=== PATIENT | male | born 1965 | race Caucasian/White ===

== ENCOUNTER 2022-09-30 17:06 | Emergency (ER) | payer OTHER, SELFPAY ==
--- NOTE | ~2022-09-30 | XR_ITS ---
EXAMINATION: XR hand LT min 3V DATE: 09/30/2022 17:22 INDICATION: Left hand stabbing injury. TECHNIQUE: 3 views of left hand were obtained. COMPARISON: None. FINDINGS: Bone alignment is normal. No fracture. 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 IMPRESSION: 1. No fracture or radiopaque foreign body. Reviewed, dictated and finalized at location E.
[2022-09-30 17:09] VITALS: BP 129/72; PULSE 78; RESP 20; TEMP 36.8; O2SAT 100
--- NOTE | 2022-09-30 17:35 | ED.WOUNDLAC ---
HPI - Wound/Laceration General Chief Complaint: Wound/Laceration Stated Complaint: left hand lac Time Seen by Provider: 09/30/22 17:15 Source: patient, family, RN notes reviewed and old records reviewed Mode of arrival: ambulatory Limitations: no limitations History of Present Illness HPI narrative: 57 year old male who presents to [facility] care with laceration to his left hand candelario aspect at base of his left index finger while trying to cut avocado.Patient reports that knife slipped and he punctured hand with insertion at base of left index finger with exit at area between 2nd and 3rd finger dorsally with no acute bleeding noted. Patient reports some numbness sensation to tip of his left index finger, circulation is intact with nail bed has brisk capillary refill, patient has full mobility of his left index finger and hand. Patient is right hand dominant. Tetanus is reported up to date. Onset (ago): hour(s) (with in past hour prior to arrival) Location: other (left hand) Place: home Patient tetanus UTD: Yes Treatments prior to arrival: bandage Related Data Home Medications Medication Instructions Recorded Confirmed finasteride 5 mg tablet 5 mg PO QHS 09/30/22 09/30/22 Allergies Allergy/AdvReac Type Severity Reaction Status Date / Time No Known Allergies Allergy Verified 09/30/22 17:32 Review of Systems Review of Systems: CONSTITUTIONAL: Denies fever, chills, or sweats. CARDIOVASCULAR: Denies chest pain, palpitations, or edema. RESPIRATORY: Denies cough or dyspnea. SKIN: Reports Laceration to left palm with insertion site at base of left index finger and puncture through to area between 2nd and 3rd finger dorsally MUSCULOSKELETAL: Denies musculoskeletal pain NEUROLOGIC: Denies numbness, or weakness. All systems reviewed & are unremarkable except as noted in HPI and below [facility] Past Medical History Medical History (Updated 10/03/22 @ 00:00 by Background Daemon) BPH (benign prostatic hyperplasia) Family History Family History (Updated 01/16/14 @ 07:13 by DOCTOR UNKNOWN) Father Family history of congestive heart failure Family history of heart disease in male family member before age 55 Social History Social History Smoking status: Never smoker Second hand tobacco smoke exposure: No Alcohol intake: never Comments At time of signature, agree with nursing past medical, surgical, social and family history. There is no relevant family history pertinent to the presenting complaint Exam Narrative: GENERAL: Well-appearing, well-nourished, and in no acute distress. HEAD: Normocephalic, atraumatic. NECK: Supple.no lymphadenopathy CHEST: Clear to auscultation. No respiratory distress.SAO2 100% on room air HEART: Regular rate and rhythm. No murmur heard. Normal peripheral pulses. EXTREMITIES: Normal range of motion. No edema. SKIN: Warm, dry, no rash. Reports puncture type of laceration to candelario aspect of left hand at base of left index finger 1 cm linear and exit between dorsal area between left 2nd and 3rd finger 0.4cm, circulation and mobility is intact reports some numbness to tip of left index finger. NEURO: No focal deficits. Alert and oriented x3. Course Course Level of Care: Express Care Visit Vital Signs Vital signs: Vital Signs Temperature 36.8 C 09/30/22 17:09 Pulse Rate 78 09/30/22 17:09 Respiratory Rate 20 09/30/22 17:09 Blood Pressure 129/72 09/30/22 17:09 Pulse Oximetry 100 09/30/22 17:09 Oxygen Delivery Room Air 09/30/22 17:09 Temperature 36.8 C 09/30/22 17:09 Pulse Rate 78 09/30/22 17:09 Respiratory Rate 20 09/30/22 17:09 Blood Pressure 129/72 09/30/22 17:09 Pulse Oximetry 100 09/30/22 17:09 Oxygen Delivery Room Air 09/30/22 17:09 Procedures Laceration left palm: Date: 09/30/22 Time: 17:32 Site: hand Side (If applicable): left Size (cm): 1 Description: linear Dep
== END 2022-09-30 18:05 | disposition home or self-care (01) ==
PROVIDERS: Emergency Provider Registered Nurse
DX: S61.412A Laceration without foreign body of left hand, initial encounter (principal); W26.0XXA Contact with knife, initial encounter; Y93.G1 Activity, food preparation and clean up; N40.0 Benign prostatic hyperplasia without lower urinary tract symptoms
CPT/HCPCS: 12001; 73130; 99203; G0463

== ENCOUNTER 2023-12-20 08:43 | Outpatient (CLI) | payer OTHER, SELFPAY ==
--- NOTE | ~2023-12-20 | CT_ITS ---
CT of the Abdomen and Pelvis: Indication: Prostate cancer Technique: 2.5 mm axial scans were obtained through the abdomen and pelvis following intravenous adm inistration of 100 cc of Omnipaque 350. Dose reduction technique was used on this scan by utilizing a utomated exposure control and iterative reconstruction technique. The dose-length product (DLP) was 2 30.59 mGy-cm. Findings: Scans through the lung bases are unremarkable. Several tiny hepatic hypodensities are too small to accurately characterize. The spleen, pancreas, ga llbladder, adrenals and kidneys are within normal limits. No evidence of aortic aneurysm. No lympha denopathy. No bowel obstruction or bowel wall thickening. There is no evidence to suggest acute appendicitis. Ex tensive stool suggests constipation. Images through the pelvis were performed. Urinary bladder unremarkable. No definite pelvic mass seen. No ascites. Impression: No definite evidence for metastatic disease. Several tiny hepatic hypodensities are too small to accu rately characterize. Constipation. Reviewed, dictated and finalized at [facility]. Impression: No definite evidence for metastatic disease. Several tiny hepatic hypodensities are too small to accurately characterize. Constipation.
--- NOTE | ~2023-12-20 | NM_ITS ---
EXAMINATION: NM bone scan whole body DATE: 12/20/2023 13:11 INDICATION: Prostate cancer. TECHNIQUE: 25 mCi Tc-99m HDP was administered intravenously. Delayed whole-body scintigrams were obt ained. COMPARISON: CT abdomen pelvis 12/20/2023 FINDINGS: There is no pattern of increased activity in the bones to suggest metastatic disease. IMPRESSION: 1. No evidence of metastatic disease. Reviewed, dictated and finalized at location A.
[2023-12-20 09:50] LABS: Estimated Glomerular Filt Rate > 60
== END 2023-12-20 08:44 | disposition home or self-care (01) ==
PROVIDERS: Visit Provider Urology
DX: C61 Malignant neoplasm of prostate (principal); K59.00 Constipation, unspecified
CPT/HCPCS: 74177; 78306; A9503; Q9967

== ENCOUNTER 2024-01-27 10:11 | Emergency (ER) | payer OTHER, SELFPAY ==
[2024-01-27 10:18] VITALS: BP 117/62; PULSE 91; RESP 20; TEMP 38.1; O2SAT 97
--- NOTE | 2024-01-27 10:19 | ED.GENADULT ---
HPI - General Adult General Chief complaint: Upper Respiratory Infection Stated complaint: sinus infection Time Seen by Provider: 01/27/24 10:19 Source: patient, RN notes reviewed and old records reviewed Mode of arrival: ambulatory Limitations: no limitations History of Present Illness HPI narrative: 58-year-old male to Express Care for complaint of low-grade fever for 3 days, mild dry cough, right ear discomfort. 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 Patient is utilize [id number] medications without relief. Patient declined COVID testing. Patient states that he has not had a sinus infection for over 2 years. Patient denies difficulty swallowing, shortness of breath, chest pain, sore throat, GI complaints. Patient resting comfortably in exam room in no acute distress. Respirations even and nonlabored. Related Data Home Medications Medication Instructions Recorded Confirmed finasteride 5 mg tablet 5 mg PO QHS 09/30/22 09/30/22 Allergies Allergy/AdvReac Type Severity Reaction Status Date / Time No Known Allergies Allergy Verified 09/30/22 17:32 Review of Systems Review of Systems: All systems reviewed & are unremarkable except as noted in HPI and below Constitutional: Constitutional: Reports as per HPI and Reports fever(s) Eyes: Eyes: Reports no additional eye complaints ENT: Reports as per HPI and Reports otalgia ( Right) Cardiovascular: Cardiovascular: Reports no additional cardiovascular complaints, Denies chest pain and Denies dyspnea Respiratory: Respiratory: Reports no additional respiratory complaints, Reports cough and Denies dyspnea Musculoskeletal: Musculoskeletal: Reports no additional musculoskeletal complaints Neurologic: Reports system reviewed and no additional complaints, except as documented Psychiatric: Psychiatric: Reports no additional psychiatric complaints [facility] Past Medical History Medical History BPH (benign prostatic hyperplasia) Family History Family History Father Family history of congestive heart failure Family history of heart disease in male family member before age 55 Social History Social History Smoking status: Never smoker Second hand tobacco smoke exposure: No Alcohol intake: never Comments At the time of my signature, I reviewed and agree with the nursing past medical, surgical, social, and family history. There is no relevant family history pertinent to the patient complaint. Exam Const: General: cooperative, healthy appearing, comfortable, no acute distress, alert and well nourished Nutritional Appearance: well nourished Orientation/consciousness: patient oriented x3 Limitations: no limitations HENMT: Head: normal to inspection Ears: external ears normal Face/Nose/Sinus: Normal external nose present, Normal nares present, normal facial exam, No erythema and No edema Face and sinus: normal facial exam, no erythema and no edema Mouth: Yes Normal oral and palatal mucosa present Eyes: General: appearance normal, both eyes and all related structures Neck: Neck: normal visual inspection, full ROM and no meningeal signs Lymphatic: no lymphadenopathy noted and no lymphedema noted Chest: Chest palpation & inspection: normal inspection of the chest Resp: Effort & Inspection: normal respiratory effort and able to speak in complete sentences Auscultation: clear to auscultation bilaterally Cardio: Jugular venous distension: no JVD Rate: regular rate Rhythm: regular rhythm Back/Spine/Pelvis: Cervical Spine: cervical ROM normal Skin: General skin exam: normal color, no rashes or lesions noted and turgor normal Neuro: General: patient oriented x3, gait normal, moves all extremities and no meningeal s
== END 2024-01-27 10:51 | disposition home or self-care (01) ==
PROVIDERS: Emergency Provider Nurse Practitioner Family
DX: J32.9 Chronic sinusitis, unspecified (principal); N40.0 Benign prostatic hyperplasia without lower urinary tract symptoms
CPT/HCPCS: 99213; G0463

== ENCOUNTER 2024-09-30 09:28 | Outpatient (CLI) | payer OTHER, SELFPAY ==
--- NOTE | ~2024-09-30 | XR_ITS ---
XR chest 2V Ordering provider: David Carrington MD History: 59 years Male with . C61 - Malignant neoplasm of prostate . Comparison: None. FINDINGS: MEDIASTINUM: The cardiac silhouette is not enlarged. LUNGS: No infiltrates, effusions or pneumothorax. OTHER: No free air under the diaphragm. Degenerative changes of the spine. IMPRESSION: No acute cardiopulmonary pathology. No definite metastatic lesions seen in the lungs. Reviewed, dictated and finalized at location A.
--- OUTSIDE RECORDS SUMMARY | 2024-09-30 09:37 | XMS_ITS | Referral Summary ---
Author Organization [facility] [facility] [place] Address [address] [place] [address] Care Team Providers Care Director Social Service Name Role Phone Archana Avery NP Primary Care Provider [phone] David Carrington MD Unavailable [phone] Allergies No known active allergies Medications finasteride (PROSCAR) 5 mg tablet take 1 tablet (5MG) by oral route every day 0 11/11/2010 Active blood glucose diagnostic (NON-FORMULARY) stripIndications :Uncontrolled type 2 diabetes mellitus with hyperglycemia, without long-term current use of insulin ([facility]) Check sugars 2-3 x week 50 each 11 10/27/2016 Active Active Problems Problem Noted Date Diagnosed Date Rising PSA level 10/18/2023 Assessment & Plan (10/18/2023 1:02 PM CDT): -chronic, new -Discussed/ordered labs -continue seeing Dr. Carrington urology -patient will be doing a prostate biopsy soon Counseling for travel 10/13/2022 Assessment & Plan (10/13/2022 8:45 AM CDT): -patient will be leaving for [place] for 2 weeks on 12/07/2022. -start on hydroxychloroquine 400 mg 1 tablet once weekly. Advised patient to start this prescription 1 week prior to leaving on his trip and to continue taking 4 weeks after he returns for a total of 7 weeks. Advised patient to take this medication on the same day each week. -prescription given for Z-Edgar in case of bacterial illness while traveling. -advised patient to wash hands often with soap and water, especially prior to eating. Benign prostatic hyperplasia with lower urinary tract symptoms 06/13/2022 Assessment & Plan (10/18/2023 7:53 AM CDT): -chronic, stable -Discussed/ordered labs -continue on finasteride 5 mg daily. Continue seeing Dr. Carrington urology. Assessment & Plan (03/15/2023 7:52 AM CDT): Chronic problem- stable Follows urology Continue finasteride 5 mg daily Continue to monitor Last PSA 3.5 on 02/11/2023 Assessment & Plan (10/13/2022 7:15 AM CDT): HPI: Condition is stable A&P: Discussed/ordered labs, encouraged healthy, low carbohydrate lifestyle and at least 150min/week of exercise, continue on finasteride 5 mg daily. Continue seeing Dr. Carrington urology. Assessment & Plan (06/13/2022 9:16 AM OFFICE SUPPORT ASSOCIATE): HPI: Condition is stable A&P: Discussed/ordered labs, encouraged healthy, low carbohydrate lifestyle and at least 150min/week of exercise, continue on finasteride 5 [address] continue seeing [address] Carrington urology. Hyperlipidemia associated with type 2 diabetes yordy auguste 10/26/2017 Assessment & Plan (10/18/2023 7:52 AM CDT): -chronic, stable -Discussed/ordered labs -Patient does not take medication for this Assessment & Plan (03/15/2023 7:50 AM CDT): Chronic problem-stable with diet and exercise Personally reviewed labs from patient external report: Total chol 172 Trigs 45 HDL 77 LDL 86 Patient does not take medication/statin therapy for this Continue to monitor Continue heart healthy diet- patient states he mostly follow a more vegetarian style diet Assessment & Plan (10/13/2022 7:14 AM CDT): HPI: Condition is stable A&P: Discussed/ordered labs, encouraged healthy, low carbohydrate lifestyle and at least 150min/week of exercise. Patient does not take medication for this Assessment & Plan (06/13/2022 10:21 AM OFFICE SUPPORT ASSOCIATE): HPI: Condition is unknown, no data to review at this time to make an evaluation A&P: Discussed/ordered labs, encouraged healthy, low carbohydrate lifestyle and at least 150min/week of exercise. Patient does not take medications for this. Assessment & Plan (01/07/2021 10:09 AM CDT): Lipids checked today No statin Assessment & Plan (10/26/2017 4:02 PM CDT): Due to the high risk of of heart attacks and strokes in patients with diabetes, it is stronglyce recommended to aim for LDL-cholesterol ( bad cholesterol ) of less than 100 ( or less than 70 if you have a history of stroke or heart disease ) and a non HDL cholesterol of less than 130 . Since statin medications have shown to decrease the risk of heart disease and strokes in patients with diabetes , its use is strongly recommended. Pt declining use of statins Type 2 diabetes mellitus wit hout complication, without long-term current use of insulin 10/05/2013 Overview (08/25/2016): DMII WO CMP UNCNTRLD Assessment & Plan (10/18/2023 1:01 PM CDT): Condition is elevated, but under goal of less than 7% Personally reviewed A1c 6.7 % goal A1c 6.9% or less, as close to <6.5% Lab Results Component Value Date HGBA1C 6.4 (H) 06/13/2022 HGBA1C 6.3 01/07/2021 HGBA1C 6.3 10/24/2019 Maintenance Diabetic (Monofilament) foot exam - completed today Annual dilated eye exams. Due now. Recommend annual eye exam. Annual Urine microalbumin/creatinine ratio - ordered today Lab Results Component Value Date ALBCREATRATU <23 06/13/2022 Immunizations: Recommend pneumococcal vaccine, zoster vaccinations BP management B/P today- 141/64 fair Patient is currently is not on an BEA/ARB Goal blood pressure is <140/90, long-term blood pressure goal is to be as close to 120/80 as possible. Dyslipidemia management Personally reviewed most recent LDL as shown below. Patient is not on a statin cholesterol lowering medication Goal of less than 70 Lab Results Component Value Date LDLCALC 101 06/13/2022 Diabetes Complications History of macrovascular disease (CVA, HI, PVD) is not Present. Complications secondary to Diabetes - none Taking baby aspirin daily: No Smoking status: non-smoker Medications no change. Patient does not take medication for this and manages it through diet and exercise. Patient completes blood work once a year in the fall due to insurance. Discussed labs/ordered labs that have been ordered if applicable. Discussed eating a healthy low carb diet, include fresh fruits and vegetables daily. Diabetic education and nutritional counseling available if you have not had this before or annually. Encouraged to try moving at least a total of 30 minutes/day. Just move more. Instructed to wash, dry, lotion and check feet daily. Instructed to notify office if blood sugars are less than 80 or greater than 250 for 3 days Assessment & Plan (03/15/2023 7:55 AM CDT): Chronic problem- stable Personally reviewed labs completed externally A1C 6.7%- slightly up from last- at goal with A1C goal 6.9%, preferred to be as close to 6.5% Continue heart healthy diet Encouraged to increase activity to at least 150 min/week Follow up with pcp in 7 months for annual exam Fasting labs ordered for future- including A1c, microalbumin/creat ratio urine Continue to monitor Assessment & Plan (10/13/2022 8:46 AM CDT): Condition is stable Personally reviewed A1c 6.4 % goal A1c 6.9% or less, as close to <6.5% Lab Results Component Value Date HGBA1C 6.4 (H) 06/13/2022 HGBA1C 6.3 01/07/2021 HGBA1C 6.3 10/24/2019 Maintenance Diabetic (Monofilament) foot exam - completed 06/13/2022 protective senses intact. Annual dilated eye exams. Due now. Recommend annual eye exam. Annual Urine microalbumin/creatinine ratio - completed 06/13/2022 Lab Results Component Value Date ALBCREATRATU <23 06/13/2022 Immunizations: Recommend pneumococcal vaccine, zoster vaccinations, COVID booster BP management B/P today- 120/69 good Patient is currently is not on an BEA/ARB Goal blood pressure is <140/90, long-term blood pressure goal is to be as close to 120/80 as possible. Dyslipidemia management Personally reviewed most recent LDL as shown below. Patient is not on a statin cholesterol lowering medication Goal of less than 70 Lab Results Component Value Date LDLCALC 101 06/13/2022 Diabetes Complications History of macrovascular disease (CVA, HI, PVD) is not Present. Complications secondary to Diabetes - none Taking baby aspirin daily: No Smoking status: non-smoker Medications no change. Patient does not take medication for this and manages it through diet and exercise. Patient completes blood work once a year in the fall due to insurance. Discussed labs/ordered labs that have been ordered if applicable. Discussed eating a healthy low carb diet, include fresh fruits and vegetables daily. Diabetic education and nutritional counseling available if you have not had this before or annually. Encouraged to try moving at least a total of 30 minutes/day. Just move more. Instructed to wash, dry, lotion and check feet daily. Instructed to notify office if blood sugars are less than 80 or greater than 250 for 3 days Assessment & Plan (06/13/2022 10:21 AM OFFICE SUPPORT ASSOCIATE): Condition is unknown, no data to review at this time to make an evaluation Lab Results Component Value Date HGBA1C 6.3 01/07/2021 HGBA1C 6.3 10/24/2019 HGBA1C 6.3 % 10/25/2018 Maintenance Diabetic (Monofilament) foot exam - completed today protective senses intact Recommended annual dilated eye exams. Annual Urine microalbumin/creatinine ratio - ordered today No results found for: ALBCREATRATU Immunizations: Recommend pneumococcal vaccine, Shingrix vaccine, COVID booster, influenza BP management B/P today- 119/68 good Patient is currently is not on an BEA/ARB Goal blood pressure is <140/90, long-term blood pressure goal is to be as close to 120/80 as possible. Dyslipidemia management Personally reviewed most recent LDL as shown below. Patient is not on a statin cholesterol lowering medication Goal of less than 70 No results found for: LDLCALC Diabetes Complications History of macrovascular disease (CVA, HI, PVD) is Present. Complications secondary to Diabetes - none Taking baby aspirin daily: No Smoking status: non-smoker Medications no change. Patient has been managing his diabetes with diet and exercise. A1c ordered today Discussed labs/ordered labs that have been ordered if applicable. Discussed eating a healthy low carb diet, include fresh fruits and vegetables daily. Diabetic education and nutritional counseling available if you have not had this before or annually. Encouraged to try moving at least a total of 30 minutes/day. Just move more. Instructed to wash, dry, lotion and check feet daily. Instructed to notify office if blood sugars are less than 80 or greater than 250 for 3 days Assessment & Plan (01/07/2021 10:09 AM CDT): Hba1c was Lab Results Component Value Date HGBA1C 6.3 01/07/2021 today, indicating adequate DM control Goals blood sugars of 120-160 and Hba1c under 7 % was explained. 1800 calorie, consistent carb diet recommended, no more than 3-45 grams of carbs per meal, avoiding concentrated sweet drinks and rapid absorption carbs. 25-45 min daily aerobic and resistance exercise recommended Continue Motostranoa Assessment & Plan (10/24/2019 4:24 PM CDT): Hba1c was Lab Results Component Value Date HGBA1C 6.3 10/24/2019 today, indicating adequate DM control 1800 calorie, consistent carb diet recommended, no more than 3-45 grams of carbs per meal, avoiding concentrated sweet drinks and rapid absorption carbs. 25-45 min daily aerobic and resistance exercise recommended Blood glucose monitoring with fingers sticks 1-2 X week Medications: continue TradBallLogicnta Assessment & Plan (10/25/2018 3:55 PM CDT): Hba1c was Lab Results Component Value Date HGBA1C 6.3 % 10/25/2018 today, indicating adequate DM control 1800 calorie, consistent carb diet recommended 25-45 min daily aerobic and resistance exercise recommended Oral medications: Continue TradBallLogicnta Assessment & Plan (10/26/2017 4:01 PM CDT): Hba1c was Lab Results Component Value Date HGBA1C 6.3 10/26/2017 today, indicating Adequate DM control 1800 calorie, consistent carb diet recommended 30 min daily aerobic and resistance exercise recommended Prevention and treatment of hyypoglcyemia discussed. Blood glucose monitoring with fingers sticks 1-2 x day . Resolved Problems Problem Noted Date Diagnosed Date Resolved Date Uncontrolled type 2 diabetes mellitus with hyperglycemia 10/27/2016 06/13/2022 Assessment & Plan (10/27/2016 4:26 PM CDT): hba1c was 6.3 today, indicating adequate DM control 1800 calorie, consistent carb diet recommended 30 min daily aerobic and resistance exercise recommended Foot care discused. Prevention and treatment of hyypoglcyemia discussed. 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 06/13/2022 Overview (08/26/2016): DISACCHARIDASE DEF/MALAB Immunizations Immunization Administration Dates Next Due Hep A / Hep B 11/29/2016,05/31/2016 Hep A, Adult 07/01/2016 Hep B Vaccine 07/20/2022,07/14/2016 Influenza, Unspecified 03/15/2023(Deferred: Lynda ent Refused) Tdap 05/31/2016 Typhoid Live 05/31/2016 Social History Tobacco Use Types Packs/Day Years Used Date Smoking Tobacco: Never Smokeless Tobacco: Never Tobacco Cessation:Counseling Given: Not Answered Alcohol Use Standard Drinks/Week Comments No 0 (1 standard drink = 0.6 oz pur e alcohol) AUDIT-C Answer Date Recorded Q1: How often do you have a drink containing alcohol? Never 10/18/2023 Q2: How many drinks containi ng alcohol do you have on a typical day when you are drinking? Patient does not drink Q3: How often do you have si x or more drinks on one occasion? Never 10/18/2023 PHQ-2 Answer Date Recorded PHQ-2 Total Score (If total score is 3 or more points, staff should administer the PHQ-9) 0 10/18/2023 Sex and Gender Information Value Date Recorded Sex Assigned at Not on file Legal Sex Male 1:28 PM OFFICE SUPPORT ASSOCIATE Gender Identity Not on file Sexual Orientation Not on file Last Filed Vital Signs Vital Sign Reading Time Taken Comments Blood Pressure 141/64 10/18/2023 8:20 AM CDT Pulse 56 10/18/2023 8:20 AM CDT Temperature 36.4 C (97.6 F) 10/18/2023 8:20 AM CDT Respiratory Rate 16 10/18/2023 8:20 AM CDT Oxygen Saturation 98% 10/18/2023 8:20 AM CDT Inhaled Oxygen Concentration - - Weight 68.9 kg (151 lb 12.8 oz) 10/18/2023 8:20 AM CDT Height 178.2 cm (5' 10.16 ) 10/18/2023 8:20 AM C DT Body Mass Index 21.68 10/18/2023 8:20 AM CDT Plan of Treatment Not on file Procedures Procedure Name Priority Date/Time Associated Diagnosis Comments ALBUMIN CREATININE RATIO, URINE Routine 10/18/2023 8:56 AM CDT Type 2 diabetes mellitus without complication, without long-term current use of insulin (HCC) HEMOGLOBIN A1C Routine 02/13/2023 LIPID PANEL Routine 02/13/2023 PSA SCREEN Routine 02/13/2023 HEPATITIS C ANTIBODY Routine 06/13/2022 9:47 AM OFFICE SUPPORT ASSOCIATE Encounter for hepatitis C screening test for low risk patient EGFR Routine 06/13/2022 9:47 AM OFFICE SUPPORT ASSOCIATE Type 2 diabetes mellitus without complication, without long-term current use of insulin (HCC) HM COLONOSCOPY Routine 04/08/2022 DIABETIC EYE EXAM Routine 07/02/2019 from Last 3 Months or Most Recently Relevant to Health Maintenance Results * Albumin Creatinine Ratio, Urine (10/18/2023 8:56 AM CDT) Albumin Ur <12.0 mg/L Comment: Interpretive Data No reference range established. Current interpretive data was last revised 2018. Creatinine Ur 28.6 mg/dL [facility] Comment: Interpretive Data No reference range established. Current interpretive data was last revised 2018. Albumin Creatinine Ratio, Ur See Comment 1 - 29 [facility] Comment:Unable to calculate Urine 10/18/2023 8:56 AM CDT 10/18/2023 8:29 PM CDT us Archana Avery NP LAB URINE ORDERABLES Final R esult [facility] [address] [place] [address] * PSA screen (02/13/2023) SCRIBED PSA, Serum 3.5 0.00 - 4.0 ng/ml EXTERNAL LAB Blood 02/13/2023 us Generic External Data Provider LAB BLOOD ORDERAB LES Final Result Performing Organization Address [facility] Co de Phone Number EXTERNAL LAB * (ABNORMAL) Hemoglobin A1c (02/13/2023) SCRIBED Hemoglobin A1c 6.7(A) 4.8 - 4.6 % EXTERNAL LAB Blood 02/13/2023 us Generic External Data Provider LAB BLOOD ORDERAB LES Final Result Performing Organization Address [facility]/ZIP Co de Phone Number EXTERNAL LAB * Lipid panel (02/13/2023) SCRIBED Cholesterol, Total 172 100 - 199 mg/dl EXTERNAL LAB SCRIBED HDL 77 - - >39 mg/dl EXTERNAL LAB SCRIBED LDL 86 0 - 99 mg/dl EXTERNAL LAB SCRIBED Triglycerides 45 0 - 149 mg/dl EXTERNAL LAB Blood 02/13/2023 us Generic External Data Provider LAB BLOOD ORDERAB LES Final Result EXTERNAL LAB * eGFR (06/13/2022 9:47 AM OFFICE SUPPORT ASSOCIATE) eGFR 84 mL/min/1. 73 m2 [facility] (ANEESH) Comment: Interpretive Data Reference Interval Normal >/= 90 mL/min/1.73m2 Mildly decreased* 60 - 89 mL/min/1.73m2 Mildly to moderately decreased 45 - 59 mL/min/1.73m2 Moderately to severely decreased 30 - 44 mL/min/1.73m2 Severely decreased 15 - 29 mL/min/1.73m2 Kidney Failure < 15 mL/min/1.73m2 *Relative to young adult level Estimated glomerular filtration rate is determined by the 2020 CKD-EPI equation recommended by the National Kidney Foundation (A Unifying Approach to GFR Estimation: Recommendations of the NKF-ASK Task Force on Reassessing the Inclusion of Race in Diagnosing Kidney Disease, JASN 2020). The CKD-EPI equation should not be used for patients with unstable renal function and has not been validated in children and those over 70. Current interpretive data was last reviewed 2021. Blood 06/13/2022 9:47 AM OFFICE SUPPORT ASSOCIATE 06/13/2022 1:38 PM OFFICE SUPPORT ASSOCIATE Archana Avery NP LAB BLOOD ORDERABLES Final R esult [facility] (ANE[facility]) 1 [facility] Department [place] [address] * Hepatitis C antibody (06/13/2022 9:47 AM OFFICE SUPPORT ASSOCIATE) Hep C Ab Nonreactive Nonreactive [facility] (ANEESH) Comment: Interpretive Data Nonreactive: Antibodies to HCV not detected. Does NOT exclude the possibility of recent exposure to HCV. Equivocal: Equivocal for HCV antibodies. Supplemental molecular testing will be automatically performed to determine infection status in accordance with current CDC screening recommendations. Reactive: Positive for HCV antibodies. This may represent current or past HCV infection. Supplemental molecular testing will be automatically performed to determine current infection status in accordance with current CDC screening recommendations. Interpretive data was last revised on 2019. Testing performed by: [facility], [address] [place] [address], [place]., [address] Blood 06/13/2022 9:47 AM OFFICE SUPPORT ASSOCIATE 06/13/2022 5:31 PM OFFICE SUPPORT ASSOCIATE Archana Avery NP LAB MICROBIOLOGY - GENERAL O RDERABLES Final Result [facility] ([place]) 1 [facility] Department [place] [address] * COLONOSCOPY (04/08/2022) 04/08/2022 Impressions Oksana Harrison, CLT - 04/08/2022 Screening colonoscopy due 06/2024 Historical Provider HEALTH MAINTENANCE Final Result * Diabetic Eye Exam (07/02/2019) Historical Provider HEALTH MAINTENANCE Edited Result - Final from Last 3 Months or Most Recently Relevant to Health Maintenance Insurance [facility] CMR [facility] CMR Care Teams Director Social Service Relationship Specialty Start Date End Date Archana Avery NP [address] [facility] [address] [place] [address] [place] [id number] PCP - General Family Medicine 06/13/22 David Carrington MD [address] [facility] [address] [place] [address] [place] [id number] Consulting Physician Urology 06/13/22
--- OUTSIDE RECORDS SUMMARY | 2024-09-30 09:37 | XMS_ITS | Clinical Summary ---
Author Organization [facility] Address [address] [place] [address] Care Team Providers Care Radiation Oncology Manager Name Role Phone Unavailable Primary Care Provider Unavailabl e Source Comments [facility],non-owned Affiliates and Associated Physician Practices is amultiple site organization consisting of ambulatory clinics and hospital sitesin [place], [place], [place] and [place]. This disclosure is being madepursuant to the Care Everywhere program and may not contain all information available regarding this patient. Last updated 18.[facility] [employer] Allergies No known active allergies Medications * Be aware that medications may not be up to date on this document. Alwaysverify current medications with the patient. finasteride (PROSCAR) 5 MG tablet Take 1 (one) tablet by mouth at bedtime 03/04/2021 Active Glucosamine Sulfate 1000 MG Take 1 tablet by mouth once daily Active sildenafil (REVATIO) 20 MG tablet Take 20 mg by mouth once daily Active Social History Tobacco Use Types Packs/Day Years Used Date Smoking Tobacco: Never Smokeless Tobacco: Never Tobacco Cessation:Counseling Given: Not Answered Sex and Gender Information Value Date Recorded Sex Assigned at Not on file Legal Sex Male 11:33 AM VOLUNTEER COORDINATOR Gender Identity Not on file Sexual Orientation Not on file Plan of Treatment Health Maintenance Due Date Last Done Comments COLOGUARD (AGES 45-75) - COL ON CA SCREENING 1963 COLON MONITORING 1963 COLONOSCOPY - COLON CA SCREENING 1963 CT COLONOGRAPHY - COLON CA SCREENING 1963 Colorectal Cancer Screening 1963 FIT - COLON CA SCREENING 1963 FLEX SIG - COLON CA SCREENING 1963 HIV SCREENING 1978 HEPATITIS C SCREENING 05/08/1981 DTAP/TDAP/TD VACCINES (1 - Tdap) 1982 PNEUMOCOCCAL VACCINE 50+ (1 of 1 - PCV) 2013 ZOSTER VACCINE (1 of 2) 2013 COVID-19 VACCINE (1 - 2023-2 5 season) 2024 DEPRESSION SCREENING 05/22/2024 INFLUENZA VACCINE (Season Ended) 2025 LIPID TESTING 01/07/2026 01/07/2021 Respiratory Syncytial Virus (RSV) Vaccine Pt: or over 60 yrs (1 - 1-dose 75+ series) 2038 HEPATITIS B VACCINE Aged Out No longe r eligible based on patient's age to complete this topic HIB VACCINE Aged Out No longer eligi ble based on patient's age to complete this topic HPV VACCINE Aged Out No longer eligi ble based on patient's age to complete this topic MENINGOCOCCAL (Group B) VACC INE SHARED DECISION-MAKING Aged Out No longer eligibl e based on patient's age to complete this topic MENINGOCOCCAL GROUPS A/C/Y/W VACCINE Aged Out No longer eligible b ased on patient's age to complete this topic Insurance [facility]
--- OUTSIDE RECORDS SUMMARY | 2024-09-30 09:37 | XMS_ITS | Clinical Summary ---
Author Organization [facility] Address [facility] [place] [address] Care Team Providers Care Beam Builder Helper Name Role Phone Gabriel Yoon MD Primary Care Provider [phone] Allergies No known active allergies Medications vitamin B-12 (CYANOCOBALAMIN ) 500 MCG tablet Take 1 tablet by mouth daily. Active finasteride 5 MG tablet Take 5 mg by mouth nightly at bedtime. 3 05/31/2018 Active Glucosamine HCl 1000 MG Tab Take 1 tablet by mouth daily. Active Methylsulfonylm ethane (MSM) 1500 MG Tab Take 1 tablet by mouth daily. Active [place]-3 Fatty Acids (FISH OIL) 645 MG Cap Take 1 capsule by mouth daily. Active Active Problems Problem Noted Date Diagnosed Date Hyperlipidemia associated wi th type 2 diabetes mellitus ([facility]) 10/26/2017 Overview (07/23/2018): Last Assessment & Plan: Due to the high risk of of [...] strongly recommended. 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 Overview (07/23/2018): Overview: DISACCHARIDASE DEF/MALAB Benign prostatic hyperplasia 12/05/2012 Family History Medical History Relation Comments Eye cancer Sister Relation Status Comments Father Mother Alive Sister Social History Tobacco Use Types Packs/Day Years Used Date Smoking Tobacco: Never Smokeless Tobacco: Never Tobacco Cessation:Counseling Given: Not Answered Alcohol Use Standard Drinks/Week Comments Never 0 (1 standard drink = 0.6 oz pur e alcohol) PHQ-2 Answer Date Recorded PHQ-2 Score - If the patient scores above 3, please move on to questions 3-9 0 04/08/2022 Sex and Gender Information Value Date Recorded Sex Assigned at Not on file Legal Sex Male 6:33 PM CDT Gender Identity Not on file Sexual Orientation Not on file Last Filed Vital Signs Vital Sign Reading Time Taken Comments Blood Pressure 117/66 04/08/2022 7:59 AM TALENT MANAGEMENT MANAGER Pulse 66 04/08/2022 7:59 AM TALENT MANAGEMENT MANAGER Temperature 36 C (96.8 F) 04/08/2022 7:59 AM TALENT MANAGEMENT MANAGER Respiratory Rate 18 07/23/2018 11:24 AM TALENT MANAGEMENT MANAGER Oxygen Saturation 97% 04/08/2022 7:59 AM TALENT MANAGEMENT MANAGER Inhaled Oxygen Concentration - - Weight 63.8 kg (140 lb 9.6 oz) 04/08/2022 7:59 A M TALENT MANAGEMENT MANAGER Height 177.8 cm (5' 10 ) 04/08/2022 7:59 AM TALENT MANAGEMENT MANAGER Body Mass Index 20.17 04/08/2022 7:59 AM TALENT MANAGEMENT MANAGER Plan of Treatment Health Maintenance Due Date Last Done Comments Colorectal Cancer Screening Colonoscopy (10 Years) 1963 Kidney Health Evaluation 1963 Hemoglobin A1C 1963 Annual Physical 1966 Hepatitis C 1981 DTaP, Tdap and Td Vaccines ( 1 - Tdap) 1982 Pneumococcal Vaccine: 50+ Ye ars (1 of 2 - PCV) 1982 Zoster Vaccines (1 of 2) 2013 Diabetes: Retinopathy Eye Exam 07/02/2021 07/02/2019 Lipid Panel 01/07/2022 01/07/2021 COVID-19 Vaccine (2 - 2023-2 5 season) 2024 08/01/2020 RSV Immunization or 60+ Years (1 - 1-dose 75+ series) 2038 Meningococcal B Vaccine Aged Out No l onger eligible based on patient's age to complete this topic Meningococcal Vaccine Aged Out No tonie raisa eligible based on patient's age to complete this topic RSV Immunizations Under 20 Months Aged Out No longer eligible based on patient's age to complete this topic Procedures Procedure Name Priority Date/Time Associated Diagnosis Comments DILATED EYE EXAM (SCAN) Routine 07/02/2019 from Last 3 Months or Most Recently Relevant to Health Maintenance Results * DIABETIC RETINOPATHY EXAM (07/02/2019) us Documents Scanned SCANNING Edited Result - Final [facility] from Last 3 Months or Most Recently Relevant to Health Maintenance Insurance [employer] Care Teams Beam Builder Helper Relationship Specialty Start Date End Date Gabriel Yoon MD PCP - General INTERNAL MEDICINE 07/23/18
--- OUTSIDE RECORDS SUMMARY | 2024-09-30 09:37 | XMS_ITS | Clinical Summary ---
Author Organization [facility] [facility] [place] Address [address] [place] [address] Care Team Providers Care Superintendent Track Name Role Phone Archana Avery NP Primary Care Provider + [phone] David Carrington MD Unavailable [phone] Allergies No known active allergies Medications finasteride (PROSCAR) 5 mg tablet take 1 tablet (5MG) by oral route every day 0 11/11/2010 Active blood glucose diagnostic (NON-FORMULARY) stripIndications :Uncontrolled type 2 diabetes mellitus with hyperglycemia, without long-term current use of insulin ([facility]) Check sugars 2-3 x week 50 each 11 10/27/2016 Active Active Problems Problem Noted Date Diagnosed Date Rising PSA level 10/18/2023 Assessment & Plan (10/18/2023 1:02 PM CDT): -chronic, new -Discussed/ordered labs -continue seeing Dr. Carrington urology -patient will be doing a prostate biopsy soon Counseling for travel 10/13/2022 Assessment & Plan (10/13/2022 8:45 AM CDT): -patient will be leaving for [place] for 2 weeks on 12/07/2022. -start on [...] urology. Assessment & Plan (06/13/2022 9:16 AM MAIL RIDER): HPI: Condition is stable A&P: Discussed/ordered labs, [...] this Assessment & Plan (06/13/2022 10:21 AM MAIL RIDER): HPI: Condition is unknown, no data to [...] Diabetes Complications History of macrovascular disease (CVA, NH, PVD) is not Present. Complications secondary to [...] Diabetes Complications History of macrovascular disease (CVA, NH, PVD) is not Present. Complications secondary to [...] days Assessment & Plan (06/13/2022 10:21 AM MAIL RIDER): Condition is unknown, no data to review [...] Diabetes Complications History of macrovascular disease (CVA, NH, PVD) is Present. Complications secondary to Diabetes [...] daily aerobic and resistance exercise recommended Continue FrenchWeba Assessment & Plan (10/24/2019 4:24 PM CDT): [...] fingers sticks 1-2 X week Medications: continue TradNoiseFreenta Assessment & Plan (10/25/2018 3:55 PM CDT): Hba1c was Lab Results Component Value Date HGBA1C 6.3 % 10/25/2018 today, indicating adequate DM control 1800 calorie, consistent carb diet recommended 25-45 min daily aerobic and resistance exercise recommended Oral medications: Continue TradNoiseFreenta Assessment & Plan (10/26/2017 4:01 PM CDT): [...] ent Refused) Tdap 05/31/2016 Typhoid Live 05/31/2016 Surgical History Surgery Date Site/Laterality Comments APPENDECTOMY Appendectomy Medical History Medical History Date Comments Diabetes mellitus (HCC) Family History Medical History Relation Name Comments Coronary artery disease Father Coronary artery disease Other 1 Fami ly history of Coronary artery disease; Diabetes type II Other 2 Family hist ory of Diabetes -Type II; Other Other 3 No family histo ry of Hyperlipidemia; Other Other 4 No family histo ry of Hypertension; Relation Name Status Comments Father Mother Alive Other 1 Other 2 Other 3 Other 4 Social History Tobacco Use Types Packs/Day Years [...] on file Legal Sex Male 1:28 PM MAIL RIDER Gender Identity Not on file Sexual Orientation Not on file Obstetrics History Last Filed Vital Signs Vital Sign Reading [...] 10/18/2023 8:20 AM CDT Plan of Treatment Health Maintenance Due Date Last Done Comments Pneumococcal vaccine <65 (1 of 2 - PCV) 1982 Zoster Vaccine (1 of 2) 2013 Dilated Eye Exam 07/02/2020 07/02/2019, 03/2019, 07/02/2018 eGFR 06/13/2023 06/13/2022, 05/23, 02/12/2022 Hemoglobin A1C 08/14/2023 02/13/2023, 05/23, 02/12/2022, Additional history exists Covid-19 Vaccine (2 - 2023-2 5 season) 2024 08/01/2020 Influenza Vaccine (#1) 2024 Lipid Panel 02/14/2024 02/13/2023, 05/23, 02/12/2022, Additional history exists Colon Cancer Screening-Colonoscopy 06/22/2024 04/08/2022, 07/11/2014, 06/22/2014 Albumin Creatinine Ratio, Urine 10/17/2024 , 06/13/2022 Depression Screening 10/17/2024 10/18/2023, 03/15/2023, 10/13/2022, Additional history exists Foot Exam 10/17/2024 10/18/2023, 09/20, 06/13/2022, Additional history exists Regular Well Visit/Exam 18-64 10/17/2024 10/18/2023 Prostate Cancer Screening-PSA 02/13/2025 02/13/2023, 02/12/2022 DTaP/Tdap/Td Vaccine (2 - Td or Tdap) 05/31/2026 05/31/2016 Colon Cancer Screening-CT Colonography Discontinued 04/08/2022, 07/11/2014 Colon Cancer Screening-DNA Stool Discontinued 04/08/20, 07/11/2014 Colon Cancer Screening-FIT Discontinued 04/08/2022, Colon Cancer Screening-Sigmoidoscopy Discontinued 04/08/2022, 07/11/2014 Hepatitis C Screening Completed 06/13/2022 Hepatitis B Screening Completed 07/20/2022 , 11/29/2016, 07/14/2016, Additional history exists Procedures Procedure Name Priority Date/Time Associated Diagnosis Comments ALBUMIN CREATININE RATIO, URINE Routine 10/18/2023 8:56 AM CDT Type 2 diabetes mellitus without complication, without long-term current use of insulin (HCC) HEMOGLOBIN A1C Routine 02/13/2023 LIPID PANEL Routine 02/13/2023 PSA SCREEN Routine 02/13/2023 HEPATITIS C ANTIBODY Routine 06/13/2022 9:47 AM MAIL RIDER Encounter for hepatitis C screening test for low risk patient EGFR Routine 06/13/2022 9:47 AM MAIL RIDER Type 2 diabetes mellitus without complication, without long-term current use of insulin (HCC) HM COLONOSCOPY Routine 04/08/2022 DIABETIC EYE EXAM Routine 07/02/2019 from Last 3 Months or Most Recently Relevant to Health Maintenance Results * Albumin Creatinine Ratio, Urine (10/18/2023 8:56 AM CDT) Pathologist [facility] Albumin Ur <12.0 mg/L Comment: Interpretive Data No reference range established. Current interpretive data was last revised 2018. Creatinine Ur 28.6 mg/dL AMY FLETCHER Comment: Interpretive Data No reference range established. Current interpretive data was last revised 2018. Albumin Creatinine Ratio, Ur See Comment 1 - 29 AMY FLETCHER Comment:Unable to calculate Urine 10/18/2023 8:56 AM CDT 10/18/2023 8:29 PM CDT Archana Avery NP LAB URINE ORDERABLES Final R esult Performing Organization Address [facility] Co de Phone Number AMY [address] Department [place] [address] * PSA screen (02/13/2023) [facility] SCRIBED PSA, Serum 3.5 0.00 - 4.0 ng/ml EXTERNAL LAB Blood 02/13/2023 Generic External Data Provider LAB BLOOD ORDERAB LES Final Result Performing Organization Address [facility] Co de Phone Number EXTERNAL LAB * (ABNORMAL) Hemoglobin A1c (02/13/2023) [facility] SCRIBED Hemoglobin A1c 6.7(A) 4.8 - 4.6 % EXTERNAL LAB Blood 02/13/2023 us Generic External Data Provider LAB BLOOD ORDERAB LES Final Result Performing Organization Address City/[facility]/ZIP Co de Phone Number EXTERNAL LAB * Lipid panel (02/13/2023) [facility] SCRIBED Cholesterol, Total 172 100 - 199 mg/dl EXTERNAL LAB SCRIBED HDL 77 - - >39 mg/dl EXTERNAL LAB SCRIBED LDL 86 0 - 99 mg/dl EXTERNAL LAB SCRIBED Triglycerides 45 0 - 149 mg/dl EXTERNAL LAB Blood 02/13/2023 Generic External Data Provider LAB BLOOD ORDERAB LES Final Result Performing Organization Address [facility]/ZIP Co de Phone Number EXTERNAL LAB * eGFR (06/13/2022 9:47 AM MAIL RIDER) eGFR 84 mL/min/1. 73 m2 [facility] Comment: Interpretive Data Reference Interval Normal >/= [...] last reviewed 2021. Blood 06/13/2022 9:47 AM MAIL RIDER 06/13/2022 1:38 PM MAIL RIDER [facility] BLOOD ORDERABLES Final R esult AMY [facility] ([facility]) [address] [facility] Department of [employer] [place] [address] * Hepatitis C antibody (06/13/2022 9:47 AM MAIL RIDER) Hep C Ab Nonreactive Nonreactive [facility] Comment: Interpretive Data Nonreactive: Antibodies to HCV [...] last revised on 2019. Testing performed by: [facility], [address] [place] [address]., [id number] Blood 06/13/2022 9:47 AM MAIL RIDER 06/13/2022 5:31 PM MAIL RIDER Archana Avery NP LAB MICROBIOLOGY - GENERAL O RDERABLES Final Result [facility] ([facility]) [address] [facility] Department [place] [address] * HM COLONOSCOPY (04/08/2022) 04/08/2022 Impressions Oksana Harrison, CLT - 04/08/2022 Screening colonoscopy due 06/2024 Historical Provider MD HEALTH MAINTENANCE Final Result * Diabetic Eye Exam (07/02/2019) Historical Provider HEALTH MAINTENANCE Edited Result - Final from Last 3 Months or Most Recently Relevant to Health Maintenance Insurance [facility] CMR [facility] CMR Care Teams Superintendent Track Relationship Specialty Start Date End Date Archana Avery NP [address] [place] [address] [address] [place] [address] PCP - General Family Medicine 06/13/22 David Carrington MD [address] [place] [address] [address] [place] [address] Consulting Physician Urology 06/13/22
--- NOTE | 2024-09-30 10:46 | ECG_ITS ---
Test Date: 2024-09-30 11:05:16 Measurements Intervals [place] Rate: 58 P: 59 VT: 161 QRS: 28 QRSD: 94 T: 55 QT: 405 QTc: 401 Interpretive Statements SINUS BRADYCARDIA No previous ECG available for comparison Electronically Signed On 10-01-2024 14:36:49 CDT by Zabrina Scott M.D.
[2024-09-30 12:33] LABS: Basophils Absolute Auto 0.1 K/mm3 (0.0-0.1); Basophils Percent Auto 0.9 % (0.2-1.2); Eosinophils Absolute Auto 0.1 K/mm3 (0-0.3); Eosinophils Percent Auto 1.1 % (0-4.4); Hematocrit 43.6 % (42.0-52.0); Immature Granulocyte Absolute 0.01 K/mm3 (0.00-0.031); Immature Granulocyte Percent A 0.2 % (0-0.5); Lymphocytes Percent Auto 26.3 % (18.3-44.2); Mean Corpuscular HGB Conc 32.1 g/dl (32-36); Mean Corpuscular Hemoglobin 31.6 pg (26-34); Mean Corpuscular Volume 98.4 fl (80-100); Monocytes Absolute Auto 0.5 K/mm3 (0.1-0.6); Monocytes Percent Auto 9.1 % (2.6-8.5); Neutrophils Absolute Auto 3.6 K/mm3 (1.3-6.7); Neutrophils Percent Auto 62.4 % (45.5-73.1); Platelet Count Result 169 k/mm3 (150-375); Red Blood Count 4.43 M/mm3 (4.6-6.20); Red Cell Distribution Width 14.3 % (11.5-14.5); White Blood Count 5.7 K/mm3 (4.5-10.0)
[2024-09-30 12:35] LABS: Add Urine Microscopic? NO; Appearance Urine Clear (Clear); Bilirubin Urine Negative (Negative); Blood Urine Negative (Negative); Color Urine Yellow (Yellow); Glucose Urine UA Negative (Negative); Ketones Urine Negative (Negative); Leukocyte Esterase Ur Negative LEU/UL (Negative); Nitrate Urine Negative (Negative); Protein Urine Negative (Negative); Specific Grav Ur 1.005 (1.001-1.035); Urobilinogen Urine 0.2 mg/dL (<2.0); pH Urine 6.5 (5.0-9.0)
[2024-09-30 12:43] LABS: Prothrombin Time 13.3 Seconds (11.1-14.7)
[2024-09-30 12:44] LABS: Alanine Aminotransferase 59 U/L (6-50); Albumin Level 4.9 g/dL (3.5-5.1); Alkaline Phosphatase 88 U/L (38-126); Anion Gap 9 mmol/L (4-12); Aspartate Amino Transferase 43 U/L (17-59); Bilirubin,Total 0.8 mg/dL (0.2-1.3); Blood Urea Nitrogen 22 mg/dL (9-20); Calcium 9.4 mg/dL (8.4-10.2); Carbon Dioxide 27 mmol/L (22-30); Chloride 104 mmol/L (98-107); Estimated Glomerular Filt Rate > 60; Glucose 120 mg/dL (65-110); Partial Thromboplastin Time 28.4 Seconds (22.3-36.8); Potassium 3.9 mmol/L (3.4-5.0); Sodium 140 mmol/L (137-145)
== END 2024-09-30 09:29 | disposition home or self-care (01) ==
LOC: ANHSURGERY 09:35
PROVIDERS: Visit Provider Urology
DX: C61 Malignant neoplasm of prostate (principal)
CPT/HCPCS: 36415; 71046; 80053; 81003; 85025; 85610; 85730; 86850; 86900; 86901; 93005

== ENCOUNTER 2024-10-10 00:58 | Day surgery (SDC) | payer OTHER, SELFPAY ==
--- NOTE | 2024-09-30 09:36 | PC.NURSE ---
Report to the Outpatient Waiting Room, entrance under the green pavilion located off [facility], at time __6 AM on date ___10/10/24____. Planned Procedure Time: _7:30 AM .? Time changes happen often and if your time is changed the preop area will call you the afternoon before. - You and your visitor will be asked to self-screen and do not enter if you have any COVID symptoms. Please call surgeon if you need to reschedule. - A mask is optional within the hospital at this time. Patients may have clear liquids (water, carbonated beverages, clear teas, apple juice) until 3 hours prior to surgery ( 4:30 AM) with a maximum of 20 ounces. - No food from midnight until time of surgery and no smoking, or chewing tobacco (or any form of nicotine). No chewing gum, candy or mints. - BOWEL PREP PER DR CASTRO Take only the following medications with a SIP of water on the morning of surgery: NONE DO NOT STOP ANY OF YOUR OTHER PRESCRIPTION MEDICATIONS PRIOR TO SURGERY EXCEPT THE FOLLOWING Hold all vitamins and supplements for 3 days per anesthesiologist.LAST DOSE 10/06/24 Medications to discontinue per physician NONE Date to take last dose Please no make-up, nail chinese, hairspray, perfume, deodorant, or body powder the day of surgery.? No jewelry (including any body piercings) or valuables the day of surgery, leave them at home.? Please take a shower or bath the night before, or the morning of, surgery with an antibacterial soap.? Wear comfortable, loose fitting clothing.? Children are encouraged to wear pajamas. - Jewelry must be removed prior to entering the operating room.? Rings and piercings that are not removed may be cut off. - The hospital will not accept responsibility for valuables.? - Please leave all valuables, including medications, at home the day of surgery. If you are going home after surgery, a licensed race car driver must drive you home.? - NO public transportation without another adult if you receive anesthesia. - We recommend that an adult stay with you for 24 hours following discharge. - We also recommend that you do not drive, make important decision, drink alcoholic beverages, or take any drugs that were not prescribed by your health care provider for at least 24 hours after your discharge time. Follow any additional instructions given to you from your surgeon. VERBAL AND WRITTEN instructions given to _PATIENT AND WIFE and asked if any additional questions and then verbalized understanding. Patient advised to call surgeon office or pre surgery nurse liaison [phone] if any additional questions.
[2024-09-30 09:41] VITALS: BMI 21.4
[2024-09-30 10:23] VITALS: BP 127/72; PULSE 59; RESP 18; TEMP 36.6; O2SAT 99
--- NOTE | 2024-10-01 18:48 | P.HP_ITS ---
H&P: HPI History of Present Illness Date/Time: 10/01/24 18:48 Chief Complaint: Prostate cancer Narrative: 10/2023: ?PSA: 5.5 ?- ?5/12 cores (all left cores x LA), GGG-3 ?- ?NCCN Unfavorable IR ?- ?Vol.: 17.7gm ?- ?-NVI/-ANUM ?Sam (prediction of pathology): ?a. ?Lymph node: 3% ?b. ?S.V.: 7% ?c. ?EPE: 35% ?d. ?Organ confined: 55% ?Street Table (risk of recurrence after RP) ?a. ?10-year: 22% ?b. ?7-year: 17% ?c. ?5-year: 12% ?d. ?3-year: 8% 11/2023: ?CT-abd/pelvis w/ contrast: normal ?Bone scan: normal 12/2023: ?Message from pt.: leaning towards RALP but will defer decision until 07/2024: ?Opts for RALP/bilat. PLND Review of Systems Review of Systems: All systems reviewed & are unremarkable except as noted in HPI and below PMFSH Past Medical History Medical History BPH (benign prostatic hyperplasia) Family History Family History Father Family history of congestive heart failure Family history of heart disease in male family member before age 55 Social History Social History Smoking status: Never smoker Second hand tobacco smoke exposure: No Alcohol intake: never Living arrangements: with family Spiritual care concerns: No Meds Home Medications and Allergies Home Medications ?Medication ?Instructions ?Recorded ?Confirmed ?Type finasteride 5 mg tablet 5 mg PO QHS 09/30/22 09/30/24 History amoxicillin 875 mg tablet 875 mg PO Q12H #20 tabs 01/27/24 09/30/24 Rx berberine chloride 500 mg capsule 500 mg PO DAILY 09/30/24 09/30/24 History cholecalciferol (vitamin D3) 25 25 mcg PO DAILY 09/30/24 09/30/24 History mcg (1,000 unit) capsule vitamin E 268 mg (400 unit) capsule 268 mg PO DAILY 09/30/24 09/30/24 History Allergies Allergy/AdvReac Type Severity Reaction Status Date / Time No Known Allergies Allergy Verified 09/30/24 09:42 Exam Const: General: no acute distress Resp: Effort & Inspection: normal respiratory effort GI: Inspection: non-distended GI Palp: No abdominal tenderness and No Guarding due to palpation present (GI) Auscultation: normal bowel sounds Assessment and Plan Assessment and plan (1) Prostate cancer: Code(s): C61 - Malignant neoplasm of prostate Status: Acute Assessment and Plan: Robotic-assisted laparoscopic radical prostatectomy with possible bilateral lymphadenectomy
[2024-10-10] VITALS (14 sets, daily range): BP systolic 100–131; BP diastolic 41–68; PULSE 59–98; RESP 9–19; TEMP 36.1–36.6; O2SAT 82–100
--- OUTSIDE RECORDS SUMMARY | 2024-10-10 01:01 | XMS_ITS | Clinical Summary ---
Author Organization [facility] Address [address] [place] [address] Care Team Providers Care Project Intern Name Role Phone Unavailable Primary Care Provider Unavailabl e Source Comments [facility],non-owned Affiliates and Associated Physician Practices is amultiple site organization consisting of ambulatory clinics and hospital sitesin [place] and [place]. This disclosure is being madepursuant to the Care Everywhere program and may not contain all information available regarding this patient. Last updated 18.[facility] Allergies No known active allergies Medications * [...] on file Legal Sex Male 11:33 AM BACON SKIN LIFTER Gender Identity Not on file Sexual Orientation [...] patient's age to complete this topic Insurance [facility] AENA
--- OUTSIDE RECORDS SUMMARY | 2024-10-10 01:01 | XMS_ITS | Clinical Summary ---
Author Organization [address] Professional [place] Address [address] [place] [address] Care Team Providers Care Hydrographic Surveyor Name Role Phone Archana Avery NP Primary Care Provider + [phone] David Carrington MD Unavailable [phone] Allergies No known active allergies Medications finasteride (PROSCAR) 5 mg tablet take 1 tablet (5MG) by oral route every day 0 11/11/2010 Active blood glucose diagnostic (NON-FORMULARY) stripIndications :Uncontrolled type 2 diabetes mellitus with hyperglycemia, without long-term current use of insulin ([facility]) Check sugars 2-3 x week 50 each 11 10/27/2016 Active Active Problems Problem Noted Date Diagnosed Date Rising PSA level 10/18/2023 Assessment & Plan (10/18/2023 1:02 PM CDT): -chronic, new -Discussed/ordered labs -continue seeing Dr. Carrington urology -patient will be doing a prostate biopsy soon Counseling for travel 10/13/2022 Assessment & Plan (10/13/2022 8:45 AM CDT): -patient will be leaving for [place] for 2 weeks on 12/07/2022. -start on [...] urology. Assessment & Plan (06/13/2022 9:16 AM REIMBURSEMENT SPEC): HPI: Condition is stable A&P: Discussed/ordered labs, [...] this Assessment & Plan (06/13/2022 10:21 AM REIMBURSEMENT SPEC): HPI: Condition is unknown, no data to [...] Diabetes Complications History of macrovascular disease (CVA, AL, PVD) is not Present. Complications secondary to [...] Diabetes Complications History of macrovascular disease (CVA, AL, PVD) is not Present. Complications secondary to [...] days Assessment & Plan (06/13/2022 10:21 AM REIMBURSEMENT SPEC): Condition is unknown, no data to review [...] Diabetes Complications History of macrovascular disease (CVA, AL, PVD) is Present. Complications secondary to Diabetes [...] daily aerobic and resistance exercise recommended Continue Scopeleca Assessment & Plan (10/24/2019 4:24 PM CDT): [...] fingers sticks 1-2 X week Medications: continue TradViva la Vitanta Assessment & Plan (10/25/2018 3:55 PM CDT): Hba1c was Lab Results Component Value Date HGBA1C 6.3 % 10/25/2018 today, indicating adequate DM control 1800 calorie, consistent carb diet recommended 25-45 min daily aerobic and resistance exercise recommended Oral medications: Continue TradViva la Vitanta Assessment & Plan (10/26/2017 4:01 PM CDT): [...] on file Legal Sex Male 1:28 PM REIMBURSEMENT SPEC Gender Identity Not on file Sexual Orientation [...] (2 - 2023-2 5 season) 2024 08/01/2020 Lipid Panel 02/14/2024 02/13/2023, 05/23, 02/12/2022, Additional history exists Colon Cancer Screening-Colonoscopy 06/22/2024 04/08/2022, 07/11/2014, 06/22/2014 Albumin Creatinine Ratio, Urine 10/17/2024 , 06/13/2022 Depression Screening 10/17/2024 10/18/2023, 03/15/2023, 10/13/2022, Additional history exists Foot Exam 10/17/2024 10/18/2023, 09/20, 06/13/2022, Additional history exists Regular Well Visit/Exam 18-64 10/17/2024 10/18/2023 Influenza Vaccine (Season Ended) 2025 Prostate Cancer Screening-PSA 02/13/2025 02/13/2023, 02/12/2022 DTaP/Tdap/Td [...] HEPATITIS C ANTIBODY Routine 06/13/2022 9:47 AM REIMBURSEMENT SPEC Encounter for hepatitis C screening test for low risk patient EGFR Routine 06/13/2022 9:47 AM REIMBURSEMENT SPEC Type 2 diabetes mellitus without complication, without long-term current use of insulin (HCC) HM COLONOSCOPY Routine 04/08/2022 DIABETIC EYE EXAM Routine 07/02/2019 from Last 3 Months or Most Recently Relevant to Health Maintenance Results * Albumin Creatinine Ratio, Urine (10/18/2023 8:56 AM CDT) Pathologist [facility] Albumin Ur <12.0 mg/L Comment: Interpretive Data [...] ORDERABLES Final R esult Performing Organization Address [facility] Co de Phone Number AMY [id number] Department [place] [address] * PSA screen (02/13/2023) [facility] [address] SCRIBED PSA, Serum 3.5 0.00 - 4.0 ng/ml EXTERNAL LAB Blood 02/13/2023 Generic External Data Provider LAB BLOOD ORDERAB LES Final Result Performing Organization Address [facility] Co de Phone Number EXTERNAL LAB * (ABNORMAL) Hemoglobin A1c (02/13/2023) [facility] [address] SCRIBED Hemoglobin A1c 6.7(A) 4.8 - 4.6 % EXTERNAL LAB Blood 02/13/2023 us Generic External Data Provider LAB BLOOD ORDERAB LES Final Result Performing Organization Address City/[facility]/ZIP Co de Phone Number EXTERNAL LAB * Lipid panel (02/13/2023) [facility] [address] SCRIBED Cholesterol, Total 172 100 - 199 mg/dl EXTERNAL LAB SCRIBED HDL 77 - - >39 mg/dl EXTERNAL LAB SCRIBED LDL 86 0 - 99 mg/dl EXTERNAL LAB SCRIBED Triglycerides 45 0 - 149 mg/dl EXTERNAL LAB Blood 02/13/2023 Generic External Data Provider LAB BLOOD ORDERAB LES Final Result Performing Organization Address [facility]/ZIP Co de Phone Number EXTERNAL LAB * eGFR (06/13/2022 9:47 AM REIMBURSEMENT SPEC) eGFR 84 mL/min/1. [address] [facility] Comment: Interpretive Data Reference Interval Normal >/= [...] last reviewed 2021. Blood 06/13/2022 9:47 AM REIMBURSEMENT SPEC 06/13/2022 1:38 PM REIMBURSEMENT SPEC [facility] LAB BLOOD ORDERABLES Final R esult [facility] 1 [facility] [place] [employer] [place] [address] * Hepatitis C antibody (06/13/2022 9:47 AM REIMBURSEMENT SPEC) Hep C Ab Nonreactive Nonreactive [facility] Comment: Interpretive Data Nonreactive: Antibodies to HCV [...] last revised on 2019. Testing performed by: [facility], [address] [place] [address]., [id number] Blood 06/13/2022 9:47 AM REIMBURSEMENT SPEC 06/13/2022 5:31 PM REIMBURSEMENT SPEC Archana Avery NP LAB MICROBIOLOGY - GENERAL O RDERABLES Final Result AMY [facility] ([place]) 1 [facility] Department [place] [address] * HM COLONOSCOPY (04/08/2022) 04/08/2022 Impressions Oksana Harrison, CLT - 04/08/2022 Screening colonoscopy due 06/2024 Historical Provider MD HEALTH MAINTENANCE Final Result * Diabetic Eye Exam (07/02/2019) Historical Provider HEALTH MAINTENANCE Edited Result - Final from Last 3 Months or Most Recently Relevant to Health Maintenance Insurance [facility] CMR [facility] CMR Care Teams Hydrographic Surveyor Relationship Specialty Start Date End Date Archana Avery NP [address] [place] [address] [address] [place] [address] PCP - General Family Medicine 06/13/22 David Carrington MD [address] [place] [address] [address] [place] [address] Consulting Physician Urology 06/13/22
--- OUTSIDE RECORDS SUMMARY | 2024-10-10 01:01 | XMS_ITS | Referral Summary ---
Author Organization [address] Professional [place] Address [address] [place] [address] Care Team Providers Care Cath Lab Tech Name Role Phone Archana Avery NP Primary Care Provider + [phone] David Carrington MD Unavailable [phone] Allergies No known active allergies Medications finasteride (PROSCAR) 5 mg tablet take 1 tablet (5MG) by oral route every day 0 11/11/2010 Active blood glucose diagnostic (NON-FORMULARY) stripIndications :Uncontrolled type 2 diabetes mellitus with hyperglycemia, without long-term current use of insulin ([facility]) Check sugars 2-3 x week 50 each 11 10/27/2016 Active Active Problems Problem Noted Date Diagnosed Date Rising PSA level 10/18/2023 Assessment & Plan (10/18/2023 1:02 PM CDT): -chronic, new -Discussed/ordered labs -continue seeing Dr. Carrington urology -patient will be doing a prostate biopsy soon Counseling for travel 10/13/2022 Assessment & Plan (10/13/2022 8:45 AM CDT): -patient will be leaving for [place] for 2 weeks on 12/07/2022. -start on [...] urology. Assessment & Plan (06/13/2022 9:16 AM SENIOR MEDICAL TECHNOLOGIST): HPI: Condition is stable A&P: Discussed/ordered labs, [...] this Assessment & Plan (06/13/2022 10:21 AM SENIOR MEDICAL TECHNOLOGIST): HPI: Condition is unknown, no data to [...] Diabetes Complications History of macrovascular disease (CVA, MD, PVD) is not Present. Complications secondary to [...] Diabetes Complications History of macrovascular disease (CVA, MD, PVD) is not Present. Complications secondary to [...] days Assessment & Plan (06/13/2022 10:21 AM SENIOR MEDICAL TECHNOLOGIST): Condition is unknown, no data to review [...] Diabetes Complications History of macrovascular disease (CVA, MD, PVD) is Present. Complications secondary to Diabetes [...] daily aerobic and resistance exercise recommended Continue [employer] Assessment & Plan (10/24/2019 4:24 PM CDT): [...] fingers sticks 1-2 X week Medications: continue TradScreenHitsnta Assessment & Plan (10/25/2018 3:55 PM CDT): Hba1c was Lab Results Component Value Date HGBA1C 6.3 % 10/25/2018 today, indicating adequate DM control 1800 calorie, consistent carb diet recommended 25-45 min daily aerobic and resistance exercise recommended Oral medications: Continue TradScreenHitsnta Assessment & Plan (10/26/2017 4:01 PM CDT): [...] on file Legal Sex Male 1:28 PM SENIOR MEDICAL TECHNOLOGIST Gender Identity Not on file Sexual Orientation [...] HEPATITIS C ANTIBODY Routine 06/13/2022 9:47 AM SENIOR MEDICAL TECHNOLOGIST Encounter for hepatitis C screening test for low risk patient EGFR Routine 06/13/2022 9:47 AM SENIOR MEDICAL TECHNOLOGIST Type 2 diabetes mellitus without complication, without [...] URINE ORDERABLES Final R esult [facility] [address] Department [place] [address] * PSA screen (02/13/2023) SCRIBED PSA, Serum 3.5 0.00 - 4.0 ng/ml EXTERNAL LAB Blood 02/13/2023 us Generic External Data Provider LAB BLOOD ORDERAB LES Final Result Performing Organization Address [facility] Co de Phone Number EXTERNAL LAB * (ABNORMAL) Hemoglobin A1c (02/13/2023) SCRIBED Hemoglobin A1c 6.7(A) 4.8 - 4.6 % EXTERNAL LAB Blood 02/13/2023 us Generic External Data Provider LAB BLOOD ORDERAB LES Final Result Performing Organization Address [facility]/ZIP Co de Phone Number EXTERNAL LAB [...] EXTERNAL LAB * eGFR (06/13/2022 9:47 AM SENIOR MEDICAL TECHNOLOGIST) eGFR 84 mL/min/1. 73 m2 AMY [facility] [...] last reviewed 2021. Blood 06/13/2022 9:47 AM SENIOR MEDICAL TECHNOLOGIST 06/13/2022 1:38 PM SENIOR MEDICAL TECHNOLOGIST Archana Avery NP LAB BLOOD ORDERABLES Final R esult [facility] ([place]) 1 [facility] Department [place] [address] * Hepatitis C antibody (06/13/2022 9:47 AM SENIOR MEDICAL TECHNOLOGIST) Hep C Ab Nonreactive Nonreactive AM[facility] LOVE [...] last revised on 2019. Testing performed by: [facility], [address] [place] [address], [place]., [address] Blood 06/13/2022 9:47 AM SENIOR MEDICAL TECHNOLOGIST 06/13/2022 5:31 PM SENIOR MEDICAL TECHNOLOGIST Archana Avery NP LAB MICROBIOLOGY - GENERAL O RDERABLES Final Result [facility] ([place]) 1 [facility] Department [place] [address] * COLONOSCOPY (04/08/2022) 04/08/2022 Impressions Oksana Harrison, CLT - 04/08/2022 Screening colonoscopy due 06/2024 Historical Provider HEALTH MAINTENANCE Final Result * Diabetic Eye Exam (07/02/2019) Historical Provider HEALTH MAINTENANCE Edited Result - Final from Last 3 Months or Most Recently Relevant to Health Maintenance Insurance [facility] CMR [facility] CMR Care Teams Cath Lab Tech Relationship Specialty Start Date End Date Archana Avery NP 2 [facility] [address] [place] [id number] PCP - General Family Medicine 06/13/22 David Carrington MD 2 [facility] [address] [place] [id number] Consulting Physician Urology 06/13/22
--- NOTE | 2024-10-10 05:54 | WPDHPUPDATE1 ---
History and Physical Update Update Date/Time: 10/10/24 05:54 History and Physical has been reviewed, including an updated exam of the patient. There are NO changes in the patient's condition. Risks, benefits, and alternatives have been discussed and questions answered. Patient agrees to proceed with procedure.
[2024-10-10] MEDS: LACTATED RINGERS 1,000 ML 30 ML IV CONT ×2 (06:30→10:45)
--- NOTE | 2024-10-10 06:44 | P.PNAN_ITS ---
Anes - Initial Pre Proc Eval Procedure: Operation Date: 10/10/24 07:30 Proposed Procedures p Robotic Assisted Laparoscopic Prostatectomy with Bilateral Pelvic Lymph Node Dissection - David Carrington MD Date/Time: 10/10/24 06:44 Surgeon: David Carrington MD Pre Op Diagnosis: prostate CA Patient Data Age: 59 Gender: M Height: 1.78 m Weight: 67.7 kg Last Vital Signs Temp 36.6 C 09/30/24 10:23 Pulse 59 L 09/30/24 10:23 Resp 18 09/30/24 10:23 BP 127/72 09/30/24 10:23 Pulse Ox 99 09/30/24 10:23 O2 Del Method Room Air 09/30/24 10:23 Allergies Allergy/AdvReac Type Severity Reaction Status Date / Time No Known Allergies Allergy Verified 10/10/24 06:10 Home Medications ?Medication ?Instructions ?Recorded ?Confirmed ?Type finasteride 5 mg tablet 5 mg PO QHS 09/30/22 10/10/24 History amoxicillin 875 mg tablet 875 mg PO Q12H #20 tabs 01/27/24 09/30/24 Rx berberine chloride 500 mg capsule 500 mg PO DAILY 09/30/24 10/10/24 History cholecalciferol (vitamin D3) 25 25 mcg PO DAILY 09/30/24 10/10/24 History mcg (1,000 unit) capsule vitamin E 268 mg (400 unit) capsule 268 mg PO DAILY 09/30/24 09/30/24 History Patient hx anesthesia problems: none Family hx anesthesia problems: none Results Review: All pre-operative results and documents have been reviewed as part of the pre- operative evaluation. [facility] Past Medical History Medical History BPH (benign prostatic hyperplasia) Family History Family History Father Family history of congestive heart failure Family history of heart disease in male family member before age 55 Social History Social History Smoking status: Never smoker Second hand tobacco smoke exposure: No Alcohol intake: never Living arrangements: with family Spiritual care concerns: No Anes - Eval Final PreProcedure Day of Procedure 10/10/24 06:45 Patient weight: normal Heart: regular rate and rhythm Lungs: clear to auscultation Airway: Mallampati scale class II Neurological: alert and oriented Last oral intake: >/= 8 hours ASA classification: III Emergent: no Anesthetic plan: proceed Anesthesia type and monitoring: general ETT and standard monitoring Results Review: All pre-operative results and documents have been reviewed as part of the pre- operative evaluation. Informed Consent: The patient's anesthetic plan and its attendant risks and benefits were discussed with the patient/family/POA. Questions were solicited and answers provided to the satisfaction of the patient/family/POA.
[2024-10-10] MEDS: ceFAZolin 2 GM/D5W 50 ML 2 GM/50 ML BAG IVPB (07:25)
--- NOTE | 2024-10-10 10:50 | P.OP_ITS ---
Procedure Note - Detailed Date of Procedure 10/10/24 Pre-op Diagnosis Prostate CA Post-op Diagnosis Same Procedure Performed Robotic assisted radical prostatectomy with bilateral pelvic lymphadenectomy Surgeon David Carrington MD Anesthesia General Description of Procedure The patient was brought to the operative suite, where he was prepped and draped in routine sterile fashion while in a dorsal lithotomy, deep Trendelenburg position. A supraumbilical 10 mm trocar was placed after insufflation of the abdomen with a Veress needle. Three robotic ports were then placed under direct vision. Two of these were placed in the right lower quadrant - 10 cm and 20 cm lateral to, and in line with, the umbilicus. A third robotic trocar was placed 10 cm to the left of the umbilicus, and 20 cm to the left of the umbilicus, a 12 mm standard laparoscopic trocar was placed to be used as an assistant professor of dietetics port. Lastly, a 5 mm trocar was placed in the left upper quadrant midway between the umbilicus and the left robotic trocar. Attention was then turned to the prostatectomy. I opted for a posterior approach in this patient. An incision was made in the parietal peritoneum along the posterior bladder/posterior prostate about 2 cm above the reflection of the peritoneum over the anterior rectum. The seminal vesicles and vas deferens were immediately identified. Dissection is undertaken in a fashion so as to avoid electrocautery as much as possible, particularly near the tips of the seminal vesicles. Dissection was also carried out in the midline so as to avoid any encounters with the ureters. The vas deferens and the seminal vesicles were dissected in their entirety to the base of the prostate. The plane anterior to Denoviller's fascia, anterior to the rectum and posterior to the prostate was then developed. I then dropped the bladder by incising the anterior parietal peritoneum just lateral to the median umbilical ligaments bilaterally. The bladder was dropped from the anterior abdominal and pelvic wall. The endopelvic fascia was identified and incised bilaterally, allowing for dissection of the posterior- lateral aspect of the prostate. The puboprostatic ligaments were transected near their origin from the posterior pubic ramus. This posterior lateral dissection of the prostate is also undertaken in a fashion so as to avoid electrocautery as much as possible. The dorsal vein of the penis is then secured with an 0 -Vicryl ligature. Attention is then turned to the bladder neck. The anterior bladder neck is incised at the vesico-prostatic junction. The previously placed urethral catheter was drawn through the urethrotomy. A very small bladder neck was maintained throughout the remainder of this dissection. The posterior bladder neck was incised in a fashion so as to avoid any injury to the ureteral orifices. Again, the small aperture of the bladder neck was maintained. The previously dissected vas deferens and the seminal vesicles were brought through the posterior bladder neck incision. The lateral prostatic pedicles were then carefully dissected from the lateral aspect of the prostate bilaterally. The prostatic pedicles were secured with Weck clips and transected. The neurovascular bundles were carefully dissected from the posterior-lateral aspect of the prostate. The dorsal vein of the penis was incised with electrocautery. Using cold scissors, the urethra was incised. After withdrawing the previously placed urethral catheter, the posterior urethra was sharply incised, as was the rectalurethralis muscle. Attention was then turned to an extended bilateral pelvic lymphadenectomy. The limits of this dissection were similar bilaterally. Specifically, the limits were the bifurcation of the common iliac vein proximally, the Sean's ligament distally, the pevic floor posteriorly. the pelvic sidewall laterally and the anterior aspect to the external iliac artery laterally. This dissection was undertaken with care to avoid any injury to the obturator nerve. The prostate, seminal vesicles and pelvic nodes were then placed in a specimen bag. The pelvis was copiously irrigated with saline. Urethrovesical anastomosis was then undertaken using similar two 3-0 V-lock sutures across a 20-[place] urethral catheter. The catheter was irrigated, and there was found to be no evidence of an irrigant extravasation. I opted not to place a pelvic drain. The robot is undocked, and the trocars were removed. The specimen was removed through the supraumbilical incision. The anterior rectus fascia at that suprapubic site was closed with a looped 0-PDS. Subcutaneous tissue was irrigated. Skin incisions were closed with 4-0 Vicryl subcuticular. Blood loss throughout this was 125cc. The patient tolerated the procedure well, was taken to recovery room in good condition. Drains No Pathology None sent Complications No immediate complications Condition Stable Disposition PACU
[2024-10-10] MEDS: fentaNYL CITRATE INJ (*CRX) 100 MCG/2 ML VIAL 25 MCG IV PUSH ×4 (11:24→11:51)
--- NOTE | 2024-10-10 12:28 | ADMGEN ---
This patient, Chuckie Richardson, was admitted to [facility] Surg Room 327-01. Patient/family oriented to hospital policies and general routines including ID bracelet, bed and alarms, visiting hours, pain management, procedures, bathroom and other care routines, personal items, smoking policy, room service/diet, and visiting hours. Information on how to activate the Rapid Response Team has been discussed. Patient/Family are encouraged to report perceived risks to care and to ask questions if they do not understand what they are told or what they should do.
[2024-10-10] MEDS: LACTATED RINGERS 1,000 ML 125 ML IV CONT (14:13)
[2024-10-10] MEDS: DOCUSATE SODIUM 100 MG CAPSULE PO (19:52)
[2024-10-10] MEDS: MORPHINE SULFATE (*CRX) 2 MG/ML INJ 1 MG IV PUSH (20:34)
[2024-10-10] MEDS: KETOROLAC 15 MG/ML VIAL (*BKC) IV PUSH (21:48)
[2024-10-10] MEDS: HYOSCYAMINE SULFATE 0.125 MG TABLET SUBLINGUAL (21:48)
[2024-10-11] MEDS: LACTATED RINGERS 1,000 ML 125 ML IV CONT (00:20)
[2024-10-11 00:47] VITALS: BP 110/63; PULSE 74; RESP 16; TEMP 36.7; O2SAT 97
[2024-10-11] MEDS: DOCUSATE SODIUM 100 MG CAPSULE PO (05:28)
[2024-10-11 06:16] VITALS: BP 85/56; PULSE 98; RESP 14; TEMP 36.7; O2SAT 100
[2024-10-11 06:29] VITALS: BP 79/56
[2024-10-11 06:30] VITALS: BP 117/61; BP 85/56
--- NOTE | 2024-10-11 06:35 | P.PNUR_ITS ---
Progress Note: A&P Assessment and Plan (1) Prostate cancer: Code(s): C61 - Malignant neoplasm of prostate Status: Acute Assessment and Plan: * Doing well POD#1-ambulating freely and tolerating * Anticipate discharge after practice if he continues to do well. Subjective Subjective Date/Time Seen: 10/11/24 06:35 Interval history: Comfortable, ambulating freely and tolerating diet. Slept poorly due to uncomfortable bed. Review of Systems Cardiovascular: Cardiovascular: Denies chest pain, Denies lightheadedness, Denies palpitations and Denies dyspnea Respiratory: Respiratory: Denies dyspnea Gastrointestinal: Gastrointestinal: Denies diarrhea, Denies nausea and Denies vomiting Genitourinary: Genitourinary: Denies hematuria and Denies dysuria Endocrine: Endocrine: Denies palpitations Exam Const: General: no acute distress Resp: Effort & Inspection: normal respiratory effort GI: Inspection: normal to inspection (Incisions healing nicely) and non- distended GI Palp: No abdominal tenderness and No Guarding due to palpation present (GI) Auscultation: normal bowel sounds Objective Data Vital Signs Vital Signs: Vital Signs - 24 hr 10/10/24 10:45 10/10/24 11:00 10/10/24 11:15 Temperature 97.1 F L Pulse Rate 70 72 80 Respiratory Rate 9 L 14 15 Blood Pressure 100/49 L 106/59 L 101/41 L Pulse Oximetry 100 100 96 Oxygen Delivery Simple Face Mask Simple Face Mask Simple Face Mask Oxygen Flow Rate 8 8 8 Fraction of Inspired Oxygen 10/10/24 11:30 10/10/24 11:45 10/10/24 12:00 Temperature 97 F L Pulse Rate 87 88 80 Respiratory Rate 19 17 14 Blood Pressure 112/62 131/68 117/59 L Pulse Oximetry 98 97 99 Oxygen Delivery Room Air Room Air Room Air Oxygen Flow Rate Fraction of Inspired Oxygen 10/10/24 12:24 10/10/24 12:30 10/10/24 12:39 Temperature 97.5 F L 97.5 F L Pulse Rate 80 98 Respiratory Rate 14 18 Blood Pressure 131/56 L 121/52 L Pulse Oximetry 99 82 L Oxygen Delivery Room Air Oxygen Flow Rate Fraction of Inspired Oxygen 10/10/24 13:10 10/10/24 14:10 10/10/24 14:28 Temperature 97.5 F L 97.5 F L Pulse Rate 73 65 Respiratory Rate 12 12 Blood Pressure 119/64 124/61 Pulse Oximetry 98 98 95 Oxygen Delivery Room Air Oxygen Flow Rate Fraction of Inspired Oxygen 21 10/10/24 18:10 10/10/24 21:35 10/11/24 00:00 Temperature 97.8 F 97.9 F Pulse Rate 77 77 Respiratory Rate 14 16 Blood Pressure 112/58 L 130/61 Pulse Oximetry 98 98 Oxygen Delivery Room Air Oxygen Flow Rate Fraction of Inspired Oxygen 10/11/24 00:47 10/11/24 06:16 10/11/24 06:29 Temperature 98.0 F 98.0 F Pulse Rate 74 98 Respiratory Rate 16 14 Blood Pressure 110/63 85/56 L 79/56 L Pulse Oximetry 97 100 Oxygen Delivery Oxygen Flow Rate Fraction of Inspired Oxygen 10/11/24 06:30 10/11/24 06:30 Temperature Pulse Rate Respiratory Rate Blood Pressure 85/56 L 117/61 Pulse Oximetry Oxygen Delivery Oxygen Flow Rate Fraction of Inspired Oxygen Intake/Output Intake/Output: Intake & Output 10/08/24 10/09/24 10/10/24 10/11/24 23:59 23:59 23:59 23:59 Intake Total 570 1000 Output Total 500 Balance 70 1000 Meds/Results Medications: Active Medications Generic Name Dose Route Start Last Admin Trade Name Freq PRN Reason Stop Dose Admin Docusate Sodium 100 mg 10/10/24 19:00 10/11/24 05:28 Docusate Sodium 100 Mg Capsule PO 100 mg Q12H SPENCER Administration Fentanyl Citrate 25 mcg 10/10/24 06:55 10/10/24 11:51 Fentanyl Citrate Inj (*Crx) 100 Mcg/2 Ml Vial IV PUSH 25 mcg Q2M PRN Administration Pain Hyoscyamine 0.125 mg 10/10/24 12:07 10/10/24 21:48 Hyoscyamine Sulfate 0.125 Mg Tablet SUBLINGUAL 0.125 mg Q4H PRN Administration Bladder Spasm Lactated Ringer's 1,000 mls @ 125 mls/hr 10/10/24 12:07 10/11/24 00:20 Lr - Lactated Ringers Iv IV CONT 125 mls/hr .Q8H SPENCER Administration Ketorolac Tromethamine 15 mg 10/10/24 12:07 10/10/24 21:48 Ketorolac 15 Mg/Ml Vial (*Bkc) IV PUSH 05/23/25 12:06 15 mg Q6H PRN Administration Pain Rated 4-6 Levofloxacin 500 mg 10/11/24 09:00 Levofloxacin 500 Mg Tablet PO DAILY SPENCER Morphine Sulfate 1 mg 10/10/24 12:07 10/10/24 20:34 Morphine Sulfate (*Crx) 2 Mg/Ml Inj IV PUSH 1 mg Q2H PRN Administration Pain Rated 7-10 Naloxone HCl 0.1 mg 10/10/24 12:07 Naloxone Hcl 0.4 Mg/Ml Vial IV PUSH Q2M PRN Opiate Reversal Ondansetron HCl 4 mg 10/10/24 06:55 Ondansetron Inj 4 Mg/2 Ml Vial IV PUSH ONCE PRN Nausea
[2024-10-11 06:36] LABS: Hematocrit 33.4 % (42.0-52.0); Hemoglobin 10.7 g/dL (14.0-18.0)
--- NOTE | 2024-10-11 06:50 | PC.NURSE ---
Pt had orthostatic hypotension noted this morning. Asymptomatic. BP lying 117/61 HR 79, Sitting 85/56 HR 65, Standing 79/56 HR 63. No complaints of dizziness or seeing spots. His hgb went from 14 to 10.7 this morning and he does appear to be a bit pale this morning. Recommended that he order a good breakfast as well to assist with a BM this am.
[2024-10-11 06:53] LABS: Anion Gap 7 mmol/L (4-12); Blood Urea Nitrogen 20 mg/dL (9-20); Calcium 8.4 mg/dL (8.4-10.2); Carbon Dioxide 25 mmol/L (22-30); Chloride 98 mmol/L (98-107); Estimated CRCL calculation 70 ml/min; Estimated Glomerular Filt Rate > 60; Glucose 195 mg/dL (65-110); Potassium 4.3 mmol/L (3.4-5.0); Sodium 130 mmol/L (137-145)
--- NOTE | 2024-10-11 07:48 | PM.DS ---
DS: Admitting Diagnosis Discharge Date 10/11/2024 Admitting Diagnosis Prostate cancer DS: Summary Hospital Course Hospital Course: This patient was admitted on the morning of his planned robotic prostatectomy. This procedure was uneventful, as was his postoperative course. By the evening of the procedure he was sitting at the bedside in tolerating a liquid diet. The following morning he was ambulating freely and tolerating regular food. His catheter drainage remained essentially clear throughout. His postoperative hemoglobin and serum creatinine were unremarkable. At the time of discharge he has been instructed in appropriate care for his Rojas catheter with both a leg bag and bedside bag. He will be discharged with plans to follow-up in 1 week with a cystogram. Time Spent with Patient Time attestation: Total time spent providing and/or coordinating discharge services: DS: Data Data Completed and Pending Pending studies at discharge: Pending at discharge 10/10/24 09:54 Surgical [PTH] Routine Labs on day of discharge: Labs from last 24 hours 10/11/24 06:09 Hgb 10.7 L D Hct 33.4 L Sodium 130 L Potassium 4.3 Chloride 98 Carbon Dioxide 25 Anion Gap 7 BUN 20 Creatinine 0.93 Estim Creat Clear Calc 70 Estimated GFR > 60 Glucose 195 H Calcium 8.4 Discharge Plan Discharge Patient Disposition: Home Discharge Instructions: 1) Rojas catheter -> leg bag / bedside bag at night. 2) No lifting/straining >15lbs. x3 weeks. 3) No driving x1-week. 4) Resume normal, pre-operative diet. 5) My office will contact regarding follow-up in 1-week with cystogram. Patient Language: Belarusian Stand Alone Forms: General Discharge Instructions Discharge Orders: Discharge Order (Routine); Ordered 10/11/24 Ordered By: David Carrington Discharge Medications: New hydrocodone-acetaminophen 5-325 mg tablet 1 - 2 tablet PO Q6H PRN (Reason: pain) Qty: 20 0RF sulfamethoxazole-trimethoprim 800-160 mg tablet 1 tablet PO Q12H Qty: 6 0RF hyoscyamine sulfate 0.125 mg tablet 0.125 mg PO Q6H PRN (Reason: bladder spasms) Qty: 20 2RF docusate sodium [Colace] 100 mg capsule 100 mg PO DAILY Qty: 30 0RF Held berberine chloride 500 mg capsule 500 mg PO DAILY Hold Instructions: Resume on 10/14/24. Discontinued finasteride 5 mg tablet 5 mg PO QHS
[2024-10-11 08:16] VITALS: BP 102/70; PULSE 77; RESP 16; TEMP 36.7; O2SAT 99
[2024-10-11] MEDS: levoFLOXacin 500 MG TABLET PO (10:20)
== END 2024-10-11 11:20 | disposition home or self-care (01) ==
LOC: ANHSURGERY 11:46 → ANH3MEDSUR 12:14
PROVIDERS: Visit Provider Urology
PROC: 0VT04ZZ Resection of Prostate, Percutaneous Endoscopic Approach (ICD-10-PCS; CPT 55867; principal; 2024-10-10 07:30)
DX: C61 Malignant neoplasm of prostate (principal)
CPT/HCPCS: 55866; 38571; S2900; 36415; 80048; 85014; 85018; 88305; 88309; A9270; J0690; J1100; J1171; J1885; J2250; J2270; J2405; J2704; J3010; J7030; J7120; Q9968

== ENCOUNTER 2024-10-17 08:32 | Outpatient (CLI) | payer OTHER, SELFPAY ==
--- NOTE | ~2024-10-17 | XR_ITS ---
EXAMINATION: CYSTOGRAM DATE: 10/17/2024 09:19 INDICATION: Status post prostatectomy TECHNIQUE: Initial program attendant radiograph of the pelvis was performed. There was retrograde administration of Omnipaque 350 mixed with saline contrast into patient's existing Rojas catheter. Fluoroscopic jazlyn ges of the pelvis were obtained. A post-void image was also performed. Fluoroscopy exposure time was 0.4 minutes. Total DAP was 4.708 mGycm^2 FINDINGS: There is a small bladder leak extending into the soft tissues posteriorly and to the left from the pr ostatectomy bed. Normal contour to the bladder with smooth mucosal surface. IMPRESSION: 1. Small leak at the left posterior prostatectomy bed. Reviewed, dictated and finalized at location A.
--- OUTSIDE RECORDS SUMMARY | 2024-10-17 08:37 | XMS_ITS | Referral Summary ---
Author Organization [address] [facility] [place] Address [address] [place] [address] Care Team Providers Care Shell Trim Operator Name Role Phone Archana Avery NP Primary Care Provider + [phone] David Carrington MD Unavailable [phone] Allergies No known active allergies Medications finasteride (PROSCAR) 5 mg tablet take 1 tablet (5MG) by oral route every day 0 11/11/2010 Active blood glucose diagnostic (NON-FORMULARY) stripIndications :Uncontrolled type 2 diabetes mellitus with hyperglycemia, without long-term current use of insulin ([facility]) Check sugars 2-3 x week 50 each 11 10/27/2016 Active Active Problems Problem Noted Date Diagnosed Date Rising PSA level 10/18/2023 Assessment & Plan (10/18/2023 1:02 PM CDT): -chronic, new -Discussed/ordered labs -continue seeing Dr. Carrington urology -patient will be doing a prostate biopsy soon Counseling for travel 10/13/2022 Assessment & Plan (10/13/2022 8:45 AM CDT): -patient will be leaving for [place] for 2 weeks on 12/07/2022. -start on [...] urology. Assessment & Plan (06/13/2022 9:16 AM WAITSTAFF): HPI: Condition is stable A&P: Discussed/ordered labs, [...] this Assessment & Plan (06/13/2022 10:21 AM WAITSTAFF): HPI: Condition is unknown, no data to [...] days Assessment & Plan (06/13/2022 10:21 AM WAITSTAFF): Condition is unknown, no data to review [...] daily aerobic and resistance exercise recommended Continue Waste Remediesa Assessment & Plan (10/24/2019 4:24 PM CDT): [...] fingers sticks 1-2 X week Medications: continue TradAviantLogicnta Assessment & Plan (10/25/2018 3:55 PM CDT): Hba1c was Lab Results Component Value Date HGBA1C 6.3 % 10/25/2018 today, indicating adequate DM control 1800 calorie, consistent carb diet recommended 25-45 min daily aerobic and resistance exercise recommended Oral medications: Continue TradAviantLogicnta Assessment & Plan (10/26/2017 4:01 PM CDT): [...] on file Legal Sex Male 1:28 PM WAITSTAFF Gender Identity Not on file Sexual Orientation [...] 8:20 AM CDT Height 178.2 cm (5' 10.16) 10/18/2023 8:20 AM C DT Body Mass [...] HEPATITIS C ANTIBODY Routine 06/13/2022 9:47 AM WAITSTAFF Encounter for hepatitis C screening test for low risk patient EGFR Routine 06/13/2022 9:47 AM WAITSTAFF Type 2 diabetes mellitus without complication, without [...] URINE ORDERABLES Final R esult AMY FLETCHER [address] Department [place] [address] * PSA screen (02/13/2023) SCRIBED PSA, Serum 3.5 0.00 - 4.0 ng/ml EXTERNAL LAB Blood 02/13/2023 us Generic External Data Provider LAB BLOOD ORDERAB LES Final Result Performing Organization Address [facility] Co de Phone Number EXTERNAL LAB * (ABNORMAL) Hemoglobin A1c (02/13/2023) SCRIBED Hemoglobin A1c 6.7(A) 4.8 - 4.6 % EXTERNAL LAB Blood 02/13/2023 us Generic External Data Provider LAB BLOOD ORDERAB LES Final Result Performing Organization Address [facility]/ZIP Co de Phone Number EXTERNAL LAB * [...] EXTERNAL LAB * eGFR (06/13/2022 9:47 AM WAITSTAFF) eGFR 84 mL/min/1. 73 m2 AMY LOVE [...] last reviewed 2021. Blood 06/13/2022 9:47 AM WAITSTAFF 06/13/2022 1:38 PM WAITSTAFF Archana Avery NP LAB BLOOD ORDERABLES Final R esult AMY [facility] ([place]) 1 [facility] Department [place] [address] * Hepatitis C antibody (06/13/2022 9:47 AM WAITSTAFF) Hep C Ab Nonreactive Nonreactive AMY LOVE [...] last revised on 2019. Testing performed by: [facility], [address] [place] [address], [place]., [address] Blood 06/13/2022 9:47 AM WAITSTAFF 06/13/2022 5:31 PM WAITSTAFF Archana Avery NP LAB MICROBIOLOGY - GENERAL O RDERABLES Final Result [facility] ([place]) 1 [facility] Department [place] [address] * COLONOSCOPY (04/08/2022) 04/08/2022 Impressions Oksana Harrison, CLT - 04/08/2022 Screening colonoscopy due 06/2024 Historical Provider HEALTH MAINTENANCE Final Result * Diabetic Eye Exam (07/02/2019) Historical Provider HEALTH MAINTENANCE Edited Result - Final from Last 3 Months or Most Recently Relevant to Health Maintenance Insurance [facility] CMR [facility] CMR Care Teams Shell Trim Operator Relationship Specialty Start Date End Date Archana Avery NP [address] [place] [id number] PCP - General Family Medicine 06/13/22 David Carrington MD [address] [facility] [place] [id number] Consulting Physician Urology 06/13/22
--- OUTSIDE RECORDS SUMMARY | 2024-10-17 08:37 | XMS_ITS | Clinical Summary ---
Author Organization [facility] Address [address] [place] [address] Care Team Providers Care Snuff Container Inspector Name Role Phone Unavailable Primary Care Provider Unavailabl e Source Comments [facility],non-owned Affiliates and Associated Physician Practices is amultiple site organization consisting of ambulatory clinics and hospital sitesin [place], [place], [place] and [place]. This disclosure is being madepursuant to the Care Everywhere program and may not contain all information available regarding this patient. Last updated 18.[facility] Allergies No known active allergies Medications * [...] on file Legal Sex Male 11:33 AM BUSINESS INTELLIGENCE ANALYST Gender Identity Not on file Sexual Orientation [...] patient's age to complete this topic Insurance [facility] SELF PAY NO INSURANCE Member Subscriber Plan / Payer (Ef fective for All Dates) Name:Alea Nguyen Member ID:Not on file Relation to Subscriber:Not on file Name:ALEA NGUYEN Subscriber ID:Not on file (Home) Address: [address] [address] Payer ID:Not on file Group ID:Not on file Type:Self Pay Address: [place], [place]
--- OUTSIDE RECORDS SUMMARY | 2024-10-17 08:37 | XMS_ITS | Clinical Summary ---
Author Organization [address] [facility] [place] Address [address] [place] [address] Care Team Providers Care Cosmetics Demonstrator Name Role Phone Archana Avery NP Primary Care Provider + [phone] David Carrington MD Unavailable [phone] Allergies No known active allergies Medications finasteride [...] AM CDT): -patient will be leaving for [place] for 2 weeks on 12/07/2022. -start on [...] urology. Assessment & Plan (06/13/2022 9:16 AM HANDLE BAR ASSEMBLER): HPI: Condition is stable A&P: Discussed/ordered labs, [...] this Assessment & Plan (06/13/2022 10:21 AM HANDLE BAR ASSEMBLER): HPI: Condition is unknown, no data to [...] Diabetes Complications History of macrovascular disease (CVA, NV, PVD) is not Present. Complications secondary to [...] Diabetes Complications History of macrovascular disease (CVA, NV, PVD) is not Present. Complications secondary to [...] days Assessment & Plan (06/13/2022 10:21 AM HANDLE BAR ASSEMBLER): Condition is unknown, no data to review [...] Diabetes Complications History of macrovascular disease (CVA, NV, PVD) is Present. Complications secondary to Diabetes [...] daily aerobic and resistance exercise recommended Continue Terosa Assessment & Plan (10/24/2019 4:24 PM CDT): [...] fingers sticks 1-2 X week Medications: continue TradAdYouNetnta Assessment & Plan (10/25/2018 3:55 PM CDT): Hba1c was Lab Results Component Value Date HGBA1C 6.3 % 10/25/2018 today, indicating adequate DM control 1800 calorie, consistent carb diet recommended 25-45 min daily aerobic and resistance exercise recommended Oral medications: Continue TradAdYouNetnta Assessment & Plan (10/26/2017 4:01 PM CDT): [...] Hep B Vaccine 07/20/2022,07/14/2016 Influenza, Unspecified 03/15/2023(Deferred: Lydna ent Refused) Tdap 05/31/2016 Typhoid Live 05/31/2016 [...] on file Legal Sex Male 1:28 PM HANDLE BAR ASSEMBLER Gender Identity Not on file Sexual Orientation [...] HEPATITIS C ANTIBODY Routine 06/13/2022 9:47 AM HANDLE BAR ASSEMBLER Encounter for hepatitis C screening test for low risk patient EGFR Routine 06/13/2022 9:47 AM HANDLE BAR ASSEMBLER Type 2 diabetes mellitus without complication, without long-term current use of insulin (HCC) HM COLONOSCOPY Routine 04/08/2022 DIABETIC EYE EXAM Routine 07/02/2019 from Last 3 Months or Most Recently Relevant to Health Maintenance Results * Albumin Creatinine Ratio, Urine (10/18/2023 8:56 AM CDT) Pathologist [facility] Albumin Ur <12.0 mg/L Comment: Interpretive Data [...] ORDERABLES Final R esult Performing Organization Address [facility] Co de Phone Number AMY [address] Department [place] [address] * PSA screen (02/13/2023) [facility] SCRIBED PSA, Serum 3.5 0.00 - 4.0 ng/ml EXTERNAL LAB Blood 02/13/2023 Generic External Data Provider LAB BLOOD ORDERAB LES Final Result Performing Organization Address [facility] Co de Phone Number EXTERNAL LAB * (ABNORMAL) Hemoglobin A1c (02/13/2023) [facility] SCRIBED Hemoglobin A1c 6.7(A) 4.8 - 4.6 % EXTERNAL LAB Blood 02/13/2023 us Generic External Data Provider LAB BLOOD ORDERAB LES Final Result Performing Organization Address City/[facility]/ZIP Co de Phone Number EXTERNAL LAB * Lipid panel (02/13/2023) [facility] SCRIBED Cholesterol, Total 172 100 - 199 mg/dl EXTERNAL LAB SCRIBED HDL 77 - - >39 mg/dl EXTERNAL LAB SCRIBED LDL 86 0 - 99 mg/dl EXTERNAL LAB SCRIBED Triglycerides 45 0 - 149 mg/dl EXTERNAL LAB Blood 02/13/2023 Generic External Data Provider LAB BLOOD ORDERAB LES Final Result Performing Organization Address [facility]/ZIP Co de Phone Number EXTERNAL LAB * eGFR (06/13/2022 9:47 AM HANDLE BAR ASSEMBLER) eGFR 84 mL/min/1. 73 m2 [facility] ([place] Comment: Interpretive Data Reference Interval Normal >/= [...] last reviewed 2021. Blood 06/13/2022 9:47 AM HANDLE BAR ASSEMBLER 06/13/2022 1:38 PM HANDLE BAR ASSEMBLER [facility] BLOOD ORDERABLES Final R esult [facility] ([place]) 1 [facility] Department [place] [address] * Hepatitis C antibody (06/13/2022 9:47 AM HANDLE BAR ASSEMBLER) Hep C Ab Nonreactive Nonreactive [facility] ([place]) Comment: Interpretive Data Nonreactive: Antibodies to HCV [...] last revised on 2019. Testing performed by: [facility], [address] [place] [address]., [id number] Blood 06/13/2022 9:47 AM HANDLE BAR ASSEMBLER 06/13/2022 5:31 PM HANDLE BAR ASSEMBLER Archana Avery NP LAB MICROBIOLOGY - GENERAL O RDERABLES Final Result [facility]Y [facility] ([place]) 1 [facility] Department [place] [address] * HM COLONOSCOPY (04/08/2022) 04/08/2022 Impressions Oksana Harrison, CLT - 04/08/2022 Screening colonoscopy due 06/2024 Historical Provider MD HEALTH MAINTENANCE Final Result * Diabetic Eye Exam (07/02/2019) Historical Provider HEALTH MAINTENANCE Edited Result - Final from Last 3 Months or Most Recently Relevant to Health Maintenance Insurance [employer] CMR [employer] C[employer] Care Teams Cosmetics Demonstrator Relationship Specialty Start Date End Date Archana Avery NP [address] [place] [address] [address] [place] [address] PCP - General Family Medicine 06/13/22 David Carrington MD [address] [place] [address] [address] [place] [address] Consulting Physician Urology 06/13/22
== END 2024-10-17 08:33 | disposition home or self-care (01) ==
PROVIDERS: Visit Provider Urology
DX: C61 Malignant neoplasm of prostate (principal); Z90.79 Acquired absence of other genital organ(s)
CPT/HCPCS: 51600; 74430; Q9967

== ENCOUNTER 2024-10-29 11:48 | Outpatient (CLI) | payer OTHER, SELFPAY ==
--- NOTE | ~2024-10-29 | XR_ITS ---
EXAMINATION: CYSTOGRAM DATE: 10/29/2024 12:34 INDICATION: Prostate cancer post prostatectomy TECHNIQUE: Initial cytogenetics technologist radiograph of the pelvis was performed. There was retrograde administration of Omnipaque 350 mixed with saline contrast into patient's existing Rojas catheter. Fluoroscopic jazlyn ges of the pelvis were obtained. A post-void image was also performed. Fluoroscopy exposure time was 0.5 minutes. A total of 21 fluoroscopic images and one overhead radiograph were obtained. Total DAP w as 5.502 mGycm2 FINDINGS/IMPRESSION: There is extraluminal bladder leak with extension of a large quantity of contrast into the extraperit lofton fat posterior to the bladder Reviewed, dictated and finalized at location A.
--- OUTSIDE RECORDS SUMMARY | 2024-10-29 13:00 | XMS_ITS | Clinical Summary ---
Author Organization [facility] [place] Address [address] [place] [address] Care Team Providers Care Interior Design Faculty Member Name Role Phone Archana Avery NP Primary Care Provider [phone] David Carrington MD Unavailable [phone] Allergies No known active allergies Medications finasteride (PROSCAR) 5 mg tablet take 1 tablet (5MG) by oral route every day 0 1 10/22/19 25 Discontinu ed(Patient Reported) blood glucose diagnostic (NON-FORMULARY) stripIndication s:Uncontrolled type 2 diabetes mellitus with hyperglycemia, without long-term current use of insulin ([facility]) Check sugars 2-3 x week 50 each 11 7 10/22/19 25 Discontinu ed(Therapy completed) Active Problems Problem Noted Date Diagnosed Date Family history of colon cancer 10/21/2024 Encounter for screening colonoscopy 10/21/2024 Personal history of prostate cancer 10/18/2023 Assessment & Plan (10/21/2024 8:55 AM CDT): -Stable -Patient had a total prostatectomy on 10/10/2024 -Reports a pre-surgery biopsy showed 60% of the prostate was cancerous and lymph nodes removed during surgery were clean. -Continue seeing Dr. Carrington urology Assessment & Plan (10/18/2023 1:02 PM CDT): -chronic, new -Discussed/ordered labs -continue seeing Dr. Carrington urology -patient will be doing a prostate biopsy soon Benign prostatic hyperplasia with lower urinary tract symptoms 06/13/2022 Assessment & Plan (10/21/2024 8:57 AM CDT): -chronic, stable -Patient is no longer taking finasteride 5 mg daily -Continue seeing Dr. Carrington urology. Assessment & Plan (10/18/2023 7:53 AM CDT): [...] urology. Assessment & Plan (06/13/2022 9:16 AM COMPRESSOR STATION OPERATOR): HPI: Condition is stable A&P: Discussed/ordered labs, encouraged healthy, low carbohydrate lifestyle and at least 150min/week of exercise, continue on finasteride 5 [address] continue seeing [address] Carrington urology. Hyperlipidemia associated with type 2 diabetes yordy auguste 10/26/2017 Assessment & Plan (10/21/2024 8:57 AM CDT): -chronic, stable -Patient does not take medication for this -recommend healthy diet with decreased intake of processed foods and increase exercise Assessment & Plan (10/18/2023 7:52 AM CDT): [...] this Assessment & Plan (06/13/2022 10:21 AM COMPRESSOR STATION OPERATOR): HPI: Condition is unknown, no data to [...] DMII WO CMP UNCNTRLD Assessment & Plan (10/21/2024 8:58 AM CDT): Condition is stable Personally reviewed A1c 6.7% goal A1c 6.9% or less, as close to <6.5% Lab Results Component Value Date HGBA1C 6.4 (H) 06/13/2022 HGBA1C 6.3 01/07/2021 HGBA1C 6.3 10/24/2019 Maintenance Diabetic (Monofilament) foot exam - completed today Annual dilated eye exams. Reports he completed this in May. We will obtain results. Annual Urine microalbumin/creatinine ratio - ordered today Lab Results Component Value Date ALBCREATRATU See Comment 10/18/2023 Immunizations: Recommend zoster vaccinations BP management B/P today- 138/70 fair Patient is currently is not on [...] Diabetes Complications History of macrovascular disease (CVA, [place], PVD) is not Present. Complications secondary to [...] 250 for 3 days Assessment & Plan (10/18/2023 1:01 PM CDT): [...] Diabetes Complications History of macrovascular disease (CVA, [place], PVD) is not Present. Complications secondary to [...] Diabetes Complications History of macrovascular disease (CVA, [place], PVD) is not Present. Complications secondary to [...] days Assessment & Plan (06/13/2022 10:21 AM COMPRESSOR STATION OPERATOR): Condition is unknown, no data to review [...] Diabetes Complications History of macrovascular disease (CVA, [place], PVD) is Present. Complications secondary to Diabetes [...] daily aerobic and resistance exercise recommended Continue [employer] Assessment & Plan (10/24/2019 4:24 PM CDT): [...] fingers sticks 1-2 X week Medications: continue [employer] Assessment & Plan (10/25/2018 3:55 PM CDT): Hba1c was Lab Results Component Value Date HGBA1C 6.3 % 10/25/2018 today, indicating adequate DM control 1800 calorie, consistent carb diet recommended 25-45 min daily aerobic and resistance exercise recommended Oral medications: Continue [employer] Assessment & Plan (10/26/2017 4:01 PM CDT): Hba1c was Lab Results Component Value Date HGBA1C 6.3 10/26/2017 today, indicating Adequate DM control 1800 calorie, consistent carb diet recommended 30 min daily aerobic and resistance exercise recommended Prevention and treatment of hyypoglcyemia discussed. Blood glucose monitoring with fingers sticks 1-2 x day . Resolved Problems Problem Noted Date Diagnosed Date Resolved Date Counseling for travel 10/13/20222024 Assessment & Plan (10/13/2022 8:45 AM CDT): -patient will be leaving for [place] for 2 weeks on 12/07/2022. -start on [...] soap and water, especially prior to eating. Uncontrolled type 2 diabetes mellitus with hyperglycemia 10/27/2016 06/13/2022 Assessment & Plan (10/27/2016 4:26 PM CDT): hba1c was 6.3 today, indicating adequate DM control 1800 calorie, consistent carb diet recommended 30 min daily aerobic and resistance exercise recommended Foot care discused. Prevention and treatment of hyypoglcyemia discussed. 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 06/13/2022 Overview (08/26/2016): DISACCHARIDASE DEF/MALAB Encounters Date Type Department Care Team Description 10/23/2024 Telephone [facility] Primary Care at [address] [place] [phone] Archana Avery NP 10/21/2024 8:30 AM CDT Office Visit [facility] Primary Care at [address] [place] [address] Archana Avery NP Annual physical exam (Primary Dx); Type 2 diabetes mellitus without complication, without long-term current use of insulin (HCC); Hyperlipidemia associated with type 2 diabetes mellitus (HCC); Benign prostatic hyperplasia with lower urinary tract symptoms, symptom details unspecified; Personal history of prostate cancer; Need for pneumococcal vaccine 10/21/2024 Telephone [facility] Gastroenterology at [place] [address] [facility] [address] [place] [address] Jose Alejandro Weldon, 10/21/2024 Orders Only [facility] Primary Care at [address] [place] [address] Archana Avery NP Colon cancer screening (Primary Dx) 10/21/2024 Telephone [facility] Primary Care at [address] [place] [address] Archana Avery NP from Last 3 Months Immunizations Immunization Administration Dates Next Due Hep A / Hep B 11/29/2016,05/31/2016 Hep A, Adult 07/01/2016 Hep B Vaccine 07/20/2022,07/14/2016 Influenza, Unspecified 03/15/2023(Deferred: Lynda ent Refused) Pneumococcal Conjugate Pcv20 10/21/2024 Tdap 05/31/2016 Typhoid Live 05/31/2016 Surgical History [...] you have a drink containing alcohol? Never 10/21/2024 Q2: How many drinks containi ng alcohol do you have on a typical day when you are drinking? Patient does not drink Q3: How often do you have si x or more drinks on one occasion? Never 10/21/2024 PHQ-2 Answer Date Recorded PHQ-2 Total Score (If total score is 3 or more points, staff should administer the PHQ-9) 0 10/21/2024 Sex and Gender Information Value Date Recorded Sex Assigned at Not on file Legal Sex Male 1:28 PM COMPRESSOR STATION OPERATOR Gender Identity Not on file Sexual Orientation Not on file Obstetrics History Last Filed Vital Signs Vital Sign Reading Time Taken Comments Blood Pressure 138/70 10/21/2024 8:15 AM CDT Pulse 51 10/21/2024 8:15 AM CDT Temperature 36.4 C (97.6 F) 10/21/2024 8:15 AM CDT Respiratory Rate 16 10/21/2024 8:15 AM CDT Oxygen Saturation 97% 10/21/2024 8:15 AM CDT Inhaled Oxygen Concentration - - Weight 64 kg (141 lb) 10/21/2024 8:15 AM CDT Height 179.6 cm (5' 10.71) 10/21/2024 8:15 AM C DT Body Mass Index 19.83 10/21/2024 8:15 AM CDT Plan of Treatment Upcoming Encounters Date Type Department Care Team (Late st Contact Info) Description 06/18/2025 8:00 AM COMPRESSOR STATION OPERATOR Hospital Encounter [address] [address] Jose Alejandro Weldon DO [address] [facility] [place] [address] 06/18/2025 8:00 AM COMPRESSOR STATION OPERATOR - 06/18/2025 8:30 AM COMPRESSOR STATION OPERATOR Surgery [address] [address] Jose Alejandro Weldon DO [address] [facility] [place] [address] COLONOSCOPY Scheduled Procedures Name Priority Associated Diagnoses Date/Ti me COLONOSCOPY Family history of colon cancer Encounter for screening colonoscopy 06/18/2025 8:00 AM COMPRESSOR STATION OPERATOR Health Maintenance Due Date Last Done Comments Zoster Vaccine (1 of 2) 2013 eGFR 06/13/2023 06/13/2022, 05/23, 02/12/2022 Hemoglobin A1C 08/14/2023 02/13/2023, 05/23, 02/12/2022, Additional history exists Covid-19 Vaccine (2 2023-06 5 season) 2024 08/01/2020 Lipid Panel 02/14/2024 02/13/2023, 05/23, 02/12/2022, Additional history exists Colon Cancer Screening-Colonoscopy 06/22/2024 04/08/2022, 07/11/2014, 06/22/2014 Albumin Creatinine Ratio, Urine 10/17/2024 , 06/13/2022 Influenza Vaccine (Season Ended) 2025 Prostate Cancer Screening-PSA 02/13/2025 02/13/2023, 02/12/2022 Depression Screening 10/21/2025 10/21/2024, 10/18/2023, 03/15/2023, Additional history exists Foot Exam 10/21/2025 10/21/2024, 0606/2024, 10/18/2023, Additional history exists Regular Well Visit/Exam 18-64 10/21/2025 10/21/2024, 10/18/2023 DTaP/Tdap/Td Vaccine (2 - Td or Tdap) 05/31/2026 05/31/2016 Dilated Eye Exam 06/15/2026 06/15/2024, 03/2020, 07/02/2018, Additional history exists Colon Cancer Screening-CT Colonography Discontinued 04/08/2022, 07/11/2014 Colon Cancer Screening-DNA Stool Discontinued 04/08/20, 07/11/2014 Colon Cancer Screening-FIT Discontinued 04/08/2022, Colon Cancer Screening-Sigmoidoscopy Discontinued 04/08/2022, 07/11/2014 Hepatitis C Screening Completed 06/13/2022 Hepatitis B Screening Completed 07/20/2022 , 11/29/2016, 07/14/2016, Additional history exists Pneumococcal vaccine <65 Completed 10/21/2024, 04/22 Procedures Procedure Name Priority Date/Time Associated Diagnosis Comments DIABETIC EYE EXAM Routine 06/15/2024 ALBUMIN CREATININE RATIO, URINE Routine 10/18/2023 8:56 AM CDT Type 2 diabetes mellitus without complication, without long-term current use of insulin (HCC) HEMOGLOBIN A1C Routine 02/13/2023 LIPID PANEL Routine 02/13/2023 PSA SCREEN Routine 02/13/2023 HEPATITIS C ANTIBODY Routine 06/13/2022 9:47 AM COMPRESSOR STATION OPERATOR Encounter for hepatitis C screening test for low risk patient EGFR Routine 06/13/2022 9:47 AM COMPRESSOR STATION OPERATOR Type 2 diabetes mellitus without complication, without long-term current use of insulin (HCC) HM COLONOSCOPY Routine 04/08/2022 from Last 3 Months or Most Recently Relevant to Health Maintenance Results * Diabetic Eye Exam (06/15/2024) 06/15/2024 Historical Provider HEALTH MAINTENANCE Final Result * Albumin Creatinine Ratio, Urine (10/18/2023 8:56 [...] URINE ORDERABLES Final R esult AMY FLETCHER [address] Department [place] [address] * PSA screen (02/13/2023) SCRIBED PSA, Serum 3.5 0.00 - 4.0 ng/ml EXTERNAL LAB Blood 02/13/2023 us Generic External Data Provider LAB BLOOD ORDERAB LES Final Result EXTERNAL LAB * (ABNORMAL) Hemoglobin A1c (02/13/2023) SCRIBED Hemoglobin A1c 6.7(A) 4.8 - 4.6 % EXTERNAL LAB Blood 02/13/2023 us Generic External Data Provider LAB BLOOD ORDERAB LES Final Result Performing Organization Address City/[facility]/ZIP Co de Phone Number EXTERNAL LAB [...] ORDERAB LES Final Result Performing Organization Address City/[facility]/ZIP Co de Phone Number EXTERNAL LAB * eGFR (06/13/2022 9:47 AM COMPRESSOR STATION OPERATOR) eGFR 84 mL/min/1. 73 m2 AMY LOVE [...] last reviewed 2021. Blood 06/13/2022 9:47 AM COMPRESSOR STATION OPERATOR 06/13/2022 1:38 PM COMPRESSOR STATION OPERATOR Archana Avery LEATHER PATCHER LAB BLOOD ORDERABLES Final R esult Performing Organization Address City/[facility]/ZIP Co de Phone Number AMY LOVE ([place]) [address] [facility] [place] [address] * Hepatitis C antibody (06/13/2022 9:47 AM COMPRESSOR STATION OPERATOR) Hep C Ab Nonreactive Nonreactive ISIDOROIBRAHIMA LOVE ([place]) Comment: Interpretive Data Nonreactive: Antibodies to HCV [...] on 2019. Testing performed by: [facility], [address] [place] [address]., [id number] Blood 06/13/2022 9:47 AM COMPRESSOR STATION OPERATOR 06/13/2022 5:31 PM COMPRESSOR STATION OPERATOR Archana Avery NP LAB MICROBIOLOGY - GENERAL O RDERABLES Final Result Performing Organization Address City/[facility]/ZIP Co de Phone Number AMY LOVE ([place]) [address] [facility] [place] [address] * HM COLONOSCOPY (04/08/2022) 04/08/2022 Impressions Oksana Harrison, CLT - 04/08/2022 Screening colonoscopy due 06/2024 us Historical Provider HEALTH MAINTENANCE Final Result from Last 3 Months or Most Recently Relevant to Health Maintenance Insurance [facility] CMR [facility] CMR Care Teams Interior Design Faculty Member Relationship Specialty Start Date End Date Archana Avery NP [address] [facility] [place] [address] PCP - General Family Medicine 06/13/22 David Carrington MD [address] [facility] [place] [place] [address] Consulting Physician Urology 06/13/22
--- OUTSIDE RECORDS SUMMARY | 2024-10-29 13:00 | XMS_ITS | Clinical Summary ---
Author Organization [facility] Address [address] [place] [address] Care Team Providers Care It Communications Specialist Name Role Phone Unavailable Primary Care Provider Unavailabl e Source Comments [facility],non-owned Affiliates and Associated Physician Practices is amultiple site organization consisting of ambulatory clinics and hospital sitesin [place], [place], [place] and [place]. This disclosure is being madepursuant to the Care Everywhere program and may not contain all information available regarding this patient. Last updated 18.[facility] Allergies No known active allergies Medications * [...] on file Legal Sex Male 11:33 AM TOWER DRAGLINE OPERATOR Gender Identity Not on file Sexual [...] age to complete this topic Insurance AET [facility] PAY NO INSURANCE Member Subscriber Plan / Payer (Ef fective for All Dates) Name:Alea Nguyen Member ID:Not on file Relation to Subscriber:Not on file Name:ALEA NGUYEN Subscriber ID:Not on file (Home) Address: [address] [address] Payer ID:Not on file Group ID:Not on file Type:Self Pay Address: [place], [place]
--- OUTSIDE RECORDS SUMMARY | 2024-10-29 13:00 | XMS_ITS | Referral Summary ---
Author Organization [address] Address [address] [place] [id number] Care Team Providers Care Blast Furnace Operator Name Role Phone Archana Avery NP Primary Care Provider David Carrington MD Unavailable [phone] Encounters Date Type Department Care Team Description 10/23/2024 Telephone [facility] Primary Care at [address] [place] [address] Archana Avery NP 10/21/2024 Telephone [facility] Gastroenterology at [address] [place] [address] Jose Alejandro Weldon, 10/21/2024 Orders Only [facility] Primary Care at [address] [place] [address] Archana Avery NP Colon cancer screening (Primary Dx) 10/21/2024 Telephone [facility] Primary Care at [address] [place] [address] Archana Avery NP 10/21/2024 8:30 AM CDT Office Visit [facility] Primary Care at [address] [place] [address] Archana Avery NP Annual physical exam (Primary Dx); Type 2 diabetes mellitus without complication, without long-term current use of insulin (HCC); Hyperlipidemia associated with type 2 diabetes mellitus (HCC); Benign prostatic hyperplasia with lower urinary tract symptoms, symptom details unspecified; Personal history of prostate cancer; Need for pneumococcal vaccine from Last 3 Months Allergies No known active allergies Medications finasteride (PROSCAR) 5 mg tablet take 1 tablet (5MG) by oral route every day 0 1 10/22/19 25 Discontinu ed(Patient Reported) blood glucose diagnostic (NON-FORMULARY) stripIndication s:Uncontrolled type 2 diabetes mellitus with hyperglycemia, without long-term current use of insulin (HCC) Check sugars 2-3 x week 50 each [...] urology. Assessment & Plan (06/13/2022 9:16 AM HOOF AND SHOE INSPECTOR): HPI: Condition is stable A&P: Discussed/ordered labs, [...] this Assessment & Plan (06/13/2022 10:21 AM HOOF AND SHOE INSPECTOR): HPI: Condition is unknown, no data to [...] Diabetes Complications History of macrovascular disease (CVA, [place], PVD) is not Present. Complications secondary to [...] Diabetes Complications History of macrovascular disease (CVA, [place], PVD) is not Present. Complications secondary to [...] Diabetes Complications History of macrovascular disease (CVA, [place], PVD) is not Present. Complications secondary to [...] days Assessment & Plan (06/13/2022 10:21 AM HOOF AND SHOE INSPECTOR): Condition is unknown, no data to review [...] Diabetes Complications History of macrovascular disease (CVA, [place], PVD) is Present. Complications secondary to Diabetes [...] daily aerobic and resistance exercise recommended Continue [employer] Assessment & Plan (10/24/2019 4:24 PM CDT): [...] fingers sticks 1-2 X week Medications: [facility] & Plan (10/25/2018 3:55 PM CDT): Hba1c was Lab Results Component Value Date HGBA1C 6.3 % 10/25/2018 today, indicating adequate DM control 1800 calorie, consistent carb diet recommended 25-45 min daily aerobic and resistance exercise recommended Oral medications: [facility] Assessment & Plan (10/26/2017 4:01 PM CDT): [...] AM CDT): -patient will be leaving for [place] for 2 weeks on 12/07/2022. -start on [...] Pcv20 10/21/2024 Tdap 05/31/2016 Typhoid Live 05/31/2016 Social History [...] on file Legal Sex Male 1:28 PM HOOF AND SHOE INSPECTOR Gender Identity Not on file Sexual Orientation [...] st Contact Info) Description 06/18/2025 8:00 AM HOOF AND SHOE INSPECTOR Hospital Encounter [address] [address] Jose Alejandro Weldon DO [address] [facility] [place] [address] 06/18/2025 8:00 AM HOOF AND SHOE INSPECTOR - 06/18/2025 8:30 AM HOOF AND SHOE INSPECTOR Surgery [address] [address] Jose Alejandro Weldon DO [address] [facility] [address] [place] [address] COLONOSCOPY Scheduled Procedures Name Priority Associated Diagnoses Date/Ti me COLONOSCOPY Family history of colon cancer Encounter for screening colonoscopy 06/18/2025 8:00 AM HOOF AND SHOE INSPECTOR Procedures Procedure Name Priority Date/Time Associated Diagnosis Comments DIABETIC EYE EXAM Routine 06/15/2024 ALBUMIN CREATININE RATIO, URINE Routine 10/18/2023 8:56 AM CDT Type 2 diabetes mellitus without complication, without long-term current use of insulin (HCC) HEMOGLOBIN A1C Routine 02/13/2023 LIPID PANEL Routine 02/13/2023 PSA SCREEN Routine 02/13/2023 HEPATITIS C ANTIBODY Routine 06/13/2022 9:47 AM HOOF AND SHOE INSPECTOR Encounter for hepatitis C screening test for low risk patient EGFR Routine 06/13/2022 9:47 AM HOOF AND SHOE INSPECTOR Type 2 diabetes mellitus without complication, without long-term current use of insulin (HCC) HM COLONOSCOPY Routine 04/08/2022 from Last 3 Months or Most Recently Relevant to Health Maintenance Results * Diabetic Eye Exam (06/15/2024) 06/15/2024 Historical Provider MD HEALTH MAINTENANCE Final Result * Albumin Creatinine Ratio, Urine (10/18/2023 8:56 AM CDT) Albumin Ur <12.0 mg/L Comment: Interpretive Data No reference range established. Current interpretive data was last revised 2018. Creatinine Ur 28.6 mg/dL AMY FLECTHER Comment: Interpretive Data No reference range established. Current interpretive data was last revised 2018. Albumin Creatinine Ratio, Ur See Comment 1 - 29 AMY FLETCHER Comment:Unable to calculate Urine 10/18/2023 8:56 AM CDT 10/18/2023 8:29 PM CDT Archana Avery NP LAB URINE ORDERABLES Final R esult [facility] [address] Department [place] [address] * PSA screen (02/13/2023) SCRIBED PSA, Serum 3.5 0.00 - 4.0 ng/ml EXTERNAL LAB Blood 02/13/2023 Generic External Data Provider LAB BLOOD ORDERAB LES Final Result EXTERNAL LAB * (ABNORMAL) Hemoglobin A1c (02/13/2023) SCRIBED Hemoglobin A1c 6.7(A) 4.8 - 4.6 % EXTERNAL LAB Blood 02/13/2023 us Generic External Data Provider LAB BLOOD ORDERAB LES Final Result EXTERNAL LAB * Lipid panel (02/13/2023) SCRIBED Cholesterol, Total 172 100 - 199 mg/dl EXTERNAL LAB SCRIBED HDL 77 - - >39 mg/dl EXTERNAL LAB SCRIBED LDL 86 0 - 99 mg/dl EXTERNAL LAB SCRIBED Triglycerides 45 0 - 149 mg/dl EXTERNAL LAB Blood 02/13/2023 us Generic External Data Provider LAB BLOOD ORDERAB LES Final Result Performing Organization Address City/[facility] Co de Phone Number EXTERNAL LAB * eGFR (06/13/2022 9:47 AM HOOF AND SHOE INSPECTOR) eGFR 84 mL/min/1. 73 m2 AMY LOVE [...] last reviewed 2021. Blood 06/13/2022 9:47 AM HOOF AND SHOE INSPECTOR 06/13/2022 1:38 PM HOOF AND SHOE INSPECTOR Archana Avery NP LAB BLOOD ORDERABLES Final R esult Performing Organization Address City/[facility]/ZIP Co de Phone Number AMY LOVE ([place]) [address] [facility] [address] * Hepatitis C antibody (06/13/2022 9:47 AM HOOF AND SHOE INSPECTOR) Hep C Ab Nonreactive Nonreactive AMY LOVE ([place]) Comment: Interpretive Data Nonreactive: Antibodies to HCV [...] last revised on 2019. Testing performed by: [facility], [address] [place] [address]., [address] Blood 06/13/2022 9:47 AM HOOF AND SHOE INSPECTOR 06/13/2022 5:31 PM HOOF AND SHOE INSPECTOR Archana Avery NP LAB MICROBIOLOGY - GENERAL O RDERABLES Final Result Performing Organization Address [facility] Co de Phone Number AMY LOVE ([place]) [address] [facility] [place] [address] * HM COLONOSCOPY (04/08/2022) 04/08/2022 Impressions Oksana Harrison CLT - 04/08/2022 Screening colonoscopy due 06/2024 Historical Provider HEALTH MAINTENANCE Final Result from Last 3 Months or Most Recently Relevant to Health Maintenance Insurance [facility] Care Teams Blast Furnace Operator Relationship Specialty Start Date End Date Archana Avery NP [address] [place] [address] [address] [place] [id number] PCP - General Family Medicine 06/13/22 David Carrington MD [address] [place] [address] [address] [place], [place] [address], [place] [address] Consulting Physician Urology 06/13/22
== END 2024-10-29 11:49 | disposition home or self-care (01) ==
PROVIDERS: Visit Provider Urology
DX: N32.89 Other specified disorders of bladder (principal); C61 Malignant neoplasm of prostate
CPT/HCPCS: 51600; 74430; Q9967